=== PATIENT | male | born 1960 | race Two or more races ===

== ENCOUNTER 2023-10-11 17:15 | Inpatient (IN) | payer OTHER ==
[~2023-10-11] VITALS: Ht 154.9 cm; Wt 82.6 kg
[2023-10-11] VITALS (10 sets, daily range): BP systolic 58–110; BP diastolic 39–78; TEMP 98; O2SAT 92–98
[~2023-10-11 17:15] MED LIST: CEFT1VIA15 IV
[2023-10-11] MEDS: IV NS 0.9% 1,000 ML BAG IV ONE (17:24)
[2023-10-11] MEDS: VANCOMYCIN 1 GM in IV D5W 250 ML IV ONE (17:30)
[2023-10-11] MEDS: CEFEPIME 1 GM in IV D5W 50 ML IV ONE (17:30)
[2023-10-11] MEDS: NOREPINEPHRINE 8 MG in IV NS 0.9% 250 ML IV ONE (18:10)
[2023-10-11 18:26] LABS: CALCIUM, SERUM 8.2 mg/dL (8.5-10.1); CARBON DIOXIDE 31 mmol/L (21-32); CHLORIDE 101 mmol/L (98-107); CREATININE 1.7 mg/dL (0.6-1.3); GLUCOSE 135 mg/dL (74-106); POTASSIUM 3.5 mmol/L (3.5-5.1); SODIUM SERUM 142 mmol/L (136-145); UREA NITROGEN, BLOOD 76 mg/dL (7-18)
[2023-10-11 18:27] LABS: SERUM AMMONIA 25 umol/L (11-32)
[2023-10-11 18:33] LABS: ALANINE AMINOTRANSFERASE 176 U/L (12-78); ALBUMIN 1.5 g/dL (3.4-5.0); ALCOHOL, BLOOD < 3 mg/dL (0-10); ALKALINE PHOSPHATASE 125 U/L (46-116); ASPARTATE AMINOTRANSFERASE 409 U/L (15-37); BILIRUBIN,DIRECT 0.1 mg/dL (0.0-0.2); BILIRUBIN,TOTAL 0.3 mg/dL (0.2-1.0); SALICYLATE 2.7 mg/dL (2.8-20.0); TOTAL PROTEIN, SERUM 6.9 g/dL (6.4-8.2)
[2023-10-11 18:34] LABS: ACETAMINOPHEN <10 ug/ml (10-30)
[2023-10-11 18:48] LABS: BASOPHILS # (AUTO) 0.1 K/uL (0.0-0.2); BASOPHILS % (AUTO) 0.5 % (0.0-2.0); HEMATOCRIT 28 % (39-51); HEMOGLOBIN 8.9 g/dL (13.5-17.5); LYMPHOCYTES # (AUTO) 2.4 K/uL (0.8-4.8); LYMPHOCYTES % (AUTO) 12.5 % (20.0-44.0); MEAN CORPUSCULAR HEMOGLOBIN 25 PG (26.0-33.0); MEAN CORPUSCULAR HGB CONC 32 g/dl (31.0-36.0); MEAN CORPUSCULAR VOLUME 80 fL (80-96); MONOCYTES # (AUTO) 0.5 K/uL (0.1-1.30); MONOCYTES % (AUTO) 2.9 % (2.0-12.0); NEUTROPHILS # (AUTO) 16.2 K/uL (1.8-8.9); NEUTROPHILS % (AUTO) 84.1 % (43.0-81.0); PLATELET COUNT (AUTO) 172 K/uL (150-450); RED BLOOD CELL COUNT(AUTO) 3.55 MIL/uL (4.5-6.0); WHITE BLOOD COUNT (AUTO) 19.2 K/uL (4.3-11.0)
[2023-10-11 19:01] LABS: LACTIC ACID 4.6 mmol/L (0.4-2.0)
[2023-10-11 19:06] LABS: THYROID STIMULATING HORMONE 2.234 uIU/mL (0.358-3.74)
[2023-10-11 19:25] LABS: INR 1.22 (0.91-1.10); PARTIAL THROMBOPLASTIN TIME 38.1 SEC (24.3-34.3); PROTHROMBIN TIME 12.8 SECS (9.2-11.1)
[2023-10-11] MEDS ORDERED: MULT9LIQ GT (19:31)
[2023-10-11] MEDS ORDERED: HYDR-4075 GT (19:31)
[2023-10-11] MEDS ORDERED: ATOR40TA GT (19:31)
[2023-10-11] MEDS ORDERED: ACET-2030 GT (19:31)
[2023-10-11] MEDS ORDERED: ONDA-97 GT (19:31)
[2023-10-11] MEDS ORDERED: ZINC50TA65 GT (19:31)
[2023-10-11] MEDS ORDERED: MAGN400O6 GT (19:31)
[2023-10-11] MEDS ORDERED: IPRA0.2S49 IH (19:31)
[2023-10-11] MEDS ORDERED: CARB50DR EACHEYE (19:31)
[2023-10-11] MEDS ORDERED: DOCU100T2 GT (19:31)
[2023-10-11] MEDS ORDERED: POLY17PO4 GT (19:31)
[2023-10-11] MEDS ORDERED: GABA250S2 GT (19:31)
[2023-10-11] MEDS ORDERED: SENN-261 GT (19:31)
[2023-10-11] MEDS ORDERED: INSU100I40 SQ (19:31)
[2023-10-11] MEDS ORDERED: CHLO473M5 PO (19:31)
[2023-10-11] MEDS ORDERED: OXYCODONE GT (19:31)
[2023-10-11] MEDS ORDERED: NUT.237L31 PO (19:31)
[2023-10-11] MEDS ORDERED: METH500T6 GT (19:31)
[2023-10-11] MEDS ORDERED: ASCO500T21 GT (19:31)
[2023-10-11] MEDS ORDERED: APIX5TAB GT (19:31)
[2023-10-11] MEDS ORDERED: FINA5TAB11 GT (19:31)
[2023-10-11] MEDS ORDERED: ACET650S26 GT ×2 (19:31)
[2023-10-11] MEDS ORDERED: ALBU2.5V38 IH (19:31)
[2023-10-11] MEDS: IV NS 0.9% 1,000 ML IV ONE (20:13)
[2023-10-11] MEDS: CARBOXYMETHYLCELLULOSE SODIUM 0.4 ML DROPERETTE EACHEYE SCH (21:00)
[2023-10-11] MEDS ORDERED: MAGNESIUM HYDROXIDE 30 ML UDC PO PRN (21:00)
[2023-10-11] MEDS ORDERED: ACETAMINOPHEN 325 MG TABLET PO PRN (21:00)
[2023-10-11] MEDS ORDERED: ONDANSETRON HCL/PF 4 MG/2 ML VIAL IVP PRN (21:00)
[2023-10-11] MEDS ORDERED: DEXTROSE 50%-WATER 50 ML DISP.SYRIN IV PRN (21:00)
[2023-10-11] MEDS ORDERED: GLUCERNA 1.5 1,000 ML BOTTLE GT SCH (21:00)
[2023-10-11] MEDS ORDERED: Medication Not On Formulary EA (Docusate Sodium 100 MG) GT SCH (21:00)
[2023-10-11] MEDS ORDERED: MAGNESIUM HYDROXIDE 30 ML UDC GT PRN (21:00)
[2023-10-11] MEDS ORDERED: CEFEPIME 1 GM in IV D5W 50 ML IV SCH (21:00)
[2023-10-11] MEDS ORDERED: ACETAMINOPHEN 650 MG/20.3 ML UDC GT PRN (21:00)
[2023-10-11] MEDS ORDERED: MAG HYDROX/AL HYDROX/SIMETH 30 ML UDC GT PRN (21:00)
[2023-10-11] MEDS: IV NS 0.9% 1,000 ML IV PRN (21:45)
[2023-10-11] MEDS: PHENYLEPHRINE 50 MG in IV NS 0.9% 245 ML IV PRN (21:47)
[2023-10-11] MEDS: SENNOSIDES 8.6 MG TABLET GT SCH (22:00)
[2023-10-11] MEDS ORDERED: VANCOMYCIN 1 GM in IV NS 0.9% 250 ML IV ONE (22:00)
[2023-10-11] MEDS: ATORVASTATIN 40 MG TABLET GT SCH (23:25)
[2023-10-11] MEDS: APIXABAN 5 MG TABLET GT SCH (23:27)
[2023-10-12] VITALS (74 sets, daily range): BP systolic 75–149; BP diastolic 51–89; TEMP 98–104.3; O2SAT 97–100
[2023-10-12] MEDS ORDERED: ALBUTEROL FS 2.5 MG/3 ML VIAL.NEB IH SCH
[2023-10-12] MEDS ORDERED: IPRATROPIUM NEB FS 0.5 MG/2.5 ML AMPUL.NEB IH SCH
[2023-10-12] MEDS: BLOOD SUGAR DIAGNOSTIC 1 EACH STRIP IN SCH (00:08)
[2023-10-12] MEDS: NOREPINEPHRINE 8 MG in IV D5W 242 ML IV PRN (00:25)
[2023-10-12] MEDS: PHENYLEPHRINE 10 MG/ML VIAL ONE ×2 (00:28→02:37)
[2023-10-12] MEDS: ALBUTEROL FS 2.5 MG/3 ML VIAL.NEB IH SCH (01:18)
[2023-10-12] MEDS: IPRATROPIUM NEB FS 0.5 MG/2.5 ML AMPUL.NEB IH SCH (01:19)
[2023-10-12] MEDS ORDERED: ASPIRIN 81 MG TAB.CHEW PO SCH (02:30)
[2023-10-12] MEDS: ACETAMINOPHEN 650 MG/20.3 ML UDC GT PRN (04:44)
[2023-10-12 04:49] LABS: ABG BASE EXCESS 1.1 mmol/L; ABG OXYGEN SATURATION 98.8 % (92.0-98.5); ABG PCO2 32.3 mmHg (35.0-45.0); ABG PH 7.494 (7.350-7.450); ABG PO2 158.6 mmHg (75.0-100.0); ABG TOTAL HEMOGLOBIN 7.8 G/dL (13.5-18.0); AaDO2 522.1 mmHg; COHb 0.1 % (0.5-1.5); MetHb 0.6 % (0.0-1.5); O2Hb 98.1 % (94.0-97.0); PEEP,BG 0 cm H2O; SITE, ABG Left Radial; VENT MODE, BG AC24 550 FIO2 100 PEEP+0; VT, ABG 550 mL
[2023-10-12] MEDS: IV NS 0.9% 500 ML IV ONE (05:01)
[2023-10-12 05:12] LABS: BASOPHILS # (AUTO) 0.1 K/uL (0.0-0.2); BASOPHILS % (AUTO) 0.3 % (0.0-2.0); HEMATOCRIT 26 % (39-51); LYMPHOCYTES # (AUTO) 1.6 K/uL (0.8-4.8); LYMPHOCYTES % (AUTO) 8.7 % (20.0-44.0); MEAN CORPUSCULAR HEMOGLOBIN 25 PG (26.0-33.0); MEAN CORPUSCULAR HGB CONC 31 g/dl (31.0-36.0); MEAN CORPUSCULAR VOLUME 79 fL (80-96); MONOCYTES # (AUTO) 0.6 K/uL (0.1-1.30); MONOCYTES % (AUTO) 3.1 % (2.0-12.0); NEUTROPHILS # (AUTO) 15.7 K/uL (1.8-8.9); NEUTROPHILS % (AUTO) 87.9 % (43.0-81.0); PLATELET COUNT (AUTO) 123 K/uL (150-450); RED BLOOD CELL COUNT(AUTO) 3.23 MIL/uL (4.5-6.0); RED CELL DISTRIBUTION WIDTH 16.6 % (11.5-15.0); WHITE BLOOD COUNT (AUTO) 17.9 K/uL (4.3-11.0)
[2023-10-12 05:19] LABS: CALCIUM, SERUM 7.9 mg/dL (8.5-10.1); CREATININE 1.7 mg/dL (0.6-1.3); PHOSPHORUS 5.3 mg/dL (2.5-4.9); POTASSIUM 3.4 mmol/L (3.5-5.1)
[2023-10-12] MEDS: NOREPINEPHRINE 8MG/250ML RTU 250 ML IV ONE (06:26)
[2023-10-12] MEDS: POLYETHYLENE GLYCOL 3350 17 GM POWD.PACK GT SCH (09:09)
[2023-10-12] MEDS: CHLORHEXIDINE GLUCONATE 15 ML UDC MM SCH (09:09)
[2023-10-12] MEDS: DOCUSATE SODIUM LIQ 100 MG/10 ML UDC GT SCH (09:09)
[2023-10-12] MEDS: FINASTERIDE (5 MG) 5 MG TABLET GT SCH (09:10)
[2023-10-12] MEDS: HYDROCORTISONE SOD SUCCINATE 100 MG/2 ML VIAL IV SCH (09:10)
[2023-10-12] MEDS: ASCORBIC ACID 500 MG TABLET GT SCH (09:10)
[2023-10-12] MEDS: METHOCARBAMOL (500MG) 500 MG TABLET GT SCH (09:10)
[2023-10-12] MEDS: MULTIVIT W/MINERALS 1 TAB TABLET GT SCH (09:10)
[2023-10-12] MEDS: POTASSIUM CL. PREMIX PERIPHER. 50 ML IV SCH (10:17)
[2023-10-12] MEDS: GABAPENTIN 300 MG CAPSULE GT SCH (12:23)
[2023-10-12] MEDS ORDERED: GLUCERNA 1.5 1,000 ML BOTTLE NG PRN (17:00)
[2023-10-12] MEDS: CEFEPIME 1 GM in IV D5W 50 ML IV SCH (17:36)
[2023-10-12] MEDS: INSULIN REGULAR, HUMAN 100 UNIT/ML 3 ML VIAL SQ PRN (18:02)
[2023-10-12] MEDS: VANCOMYCIN HCL 1.25 GM in IV D5W 250 ML IV SCH (18:26)
[2023-10-13] VITALS (97 sets, daily range): BP systolic 88–125; BP diastolic 62–90; TEMP 97.1–100.2; O2SAT 100
[2023-10-13 05:06] LABS: CALCIUM, SERUM 8.1 mg/dL (8.5-10.1); CREATININE 0.7 mg/dL (0.6-1.3); POTASSIUM 3.1 mmol/L (3.5-5.1)
[2023-10-13] MEDS: POTASSIUM CHLORIDE 20 MEQ POWDER PACKET GT SCH (08:30)
[2023-10-13] MEDS: CEFEPIME 2 GM in IV D5W 100 ML IV SCH (08:39)
[2023-10-13] MEDS: VANCOMYCIN 750 MG in IV D5W 250 ML IV SCH (08:40)
[2023-10-13] MEDS: THERAHONEY GEL 1.5 OZ TUBE TP SCH ×2 (09:00→16:26)
[2023-10-13] MEDS: POLYVINYL ALCOHOL 15 ML BOTTLE EACHEYE SCH (16:27)
[2023-10-13] MEDS: PROSOURCE / PROSTAT (PYXIS) 30 ML UDC GT SCH (16:34)
[2023-10-13] MEDS: ARGININE/GLUTAMINE/CALCIUM BMB 1 EACH POWD.PACK GT SCH (16:34)
[2023-10-14] VITALS (92 sets, daily range): BP systolic 79–135; BP diastolic 55–93; TEMP 97–98.8; O2SAT 95–100
[2023-10-14] MEDS: GLUCERNA 1.2 1,000 ML BOTTLE NG PRN (00:21)
[2023-10-14 04:54] LABS: CALCIUM, SERUM 8.4 mg/dL (8.5-10.1); CREATININE 0.6 mg/dL (0.6-1.3); POTASSIUM 3.1 mmol/L (3.5-5.1)
[2023-10-14 07:00] LABS: BASOPHILS % (AUTO) 0.2 % (0.0-2.0); LYMPHOCYTES # (AUTO) 0.7 K/uL (0.8-4.8); LYMPHOCYTES % (AUTO) 6.1 % (20.0-44.0); MEAN CORPUSCULAR HEMOGLOBIN 25 PG (26.0-33.0); MEAN CORPUSCULAR HGB CONC 31 g/dl (31.0-36.0); MEAN CORPUSCULAR VOLUME 80 fL (80-96); MONOCYTES # (AUTO) 0.3 K/uL (0.1-1.30); MONOCYTES % (AUTO) 2.9 % (2.0-12.0); NEUTROPHILS # (AUTO) 10.9 K/uL (1.8-8.9); NEUTROPHILS % (AUTO) 90.8 % (43.0-81.0); PLATELET COUNT (AUTO) 61 K/uL (150-450); RED BLOOD CELL COUNT(AUTO) 2.37 MIL/uL (4.5-6.0); RED CELL DISTRIBUTION WIDTH 16.3 % (11.5-15.0)
[2023-10-14 07:07] LABS: HEMATOCRIT 19 % (39-51); HEMOGLOBIN 5.9 g/dL (13.5-17.5)
[2023-10-14] MEDS: POTASSIUM CHLORIDE 20 MEQ POWDER PACKET GT ONE (08:49)
[2023-10-14 12:09] LABS: BAND % (MANUAL) 2 % (0.0-5.0); EOSINOPHILS % (MANUAL) 0 % (0-4); LYMPHOCYTES % (MANUAL) 9 % (16-48); MONOCYTES % (MANUAL) 4 % (0-11.0); NEUTROPHILS % (MANUAL) 85 (42-76)
[2023-10-14 12:10] LABS: ANISOCYTOSIS 1+; BASOPHILS % (MANUAL) 0 % (0.0-2.0); HYPOCHROMASIA 1+; OVALOCYTES 1+; PLATELET ESTIMATE DECREASED
[2023-10-14] MEDS: METOCLOPRAMIDE HCL 10 MG/2 ML VIAL IV SCH (21:49)
[2023-10-15] VITALS (31 sets, daily range): BP systolic 105–132; BP diastolic 51–97; TEMP 97.7–98.1; O2SAT 94–100
[2023-10-15 03:52] LABS: BASOPHILS % (AUTO) 0.2 % (0.0-2.0); HEMATOCRIT 23 % (39-51); HEMOGLOBIN 7.7 g/dL (13.5-17.5); LYMPHOCYTES # (AUTO) 0.6 K/uL (0.8-4.8); LYMPHOCYTES % (AUTO) 5.5 % (20.0-44.0); MEAN CORPUSCULAR HEMOGLOBIN 26 PG (26.0-33.0); MEAN CORPUSCULAR HGB CONC 33 g/dl (31.0-36.0); MEAN CORPUSCULAR VOLUME 80 fL (80-96); MONOCYTES # (AUTO) 0.2 K/uL (0.1-1.30); MONOCYTES % (AUTO) 2.4 % (2.0-12.0); NEUTROPHILS # (AUTO) 9.7 K/uL (1.8-8.9); NEUTROPHILS % (AUTO) 91.9 % (43.0-81.0); PLATELET COUNT (AUTO) 52 K/uL (150-450); RED BLOOD CELL COUNT(AUTO) 2.92 MIL/uL (4.5-6.0); RED CELL DISTRIBUTION WIDTH 16.3 % (11.5-15.0); WHITE BLOOD COUNT (AUTO) 10.5 K/uL (4.3-11.0)
[2023-10-15 04:27] LABS: ALBUMIN 1.5 g/dL (3.4-5.0); BILIRUBIN,TOTAL 0.8 mg/dL (0.2-1.0); CALCIUM, SERUM 8.7 mg/dL (8.5-10.1); CREATININE 0.5 mg/dL (0.6-1.3); MAGNESIUM 2.4 mg/dL (1.8-2.4); PHOSPHORUS 3.8 mg/dL (2.5-4.9); POTASSIUM 3.4 mmol/L (3.5-5.1)
[2023-10-15 05:47] LABS: ANISOCYTOSIS 1+; BASOPHILS % (MANUAL) 0 % (0.0-2.0); EOSINOPHILS % (MANUAL) 0 % (0-4); HYPOCHROMASIA 1+; LYMPHOCYTES % (MANUAL) 12 % (16-48); MONOCYTES % (MANUAL) 5 % (0-11.0); NEUTROPHILS % (MANUAL) 83 (42-76); PLATELET ESTIMATE DECREASED
[2023-10-15] MEDS: POTASSIUM CHLORIDE 20 MEQ POWDER PACKET NG SCH (08:28)
[2023-10-15] MEDS: Z GUARD REMEDY 4 OZ OINT TP PRN (09:31)
[2023-10-15] MEDS: MEROPENEM 1 G in IV NS 0.9% 100 ML IV SCH (09:39)
[2023-10-15] MEDS: HYDROCORTISONE SOD SUCCINATE 100 MG/2 ML VIAL IV SCH (16:10)
[2023-10-16] VITALS (86 sets, daily range): BP systolic 82–134; BP diastolic 51–79; TEMP 97.6–102.7; O2SAT 89–99
[2023-10-16 03:37] LABS: CALCIUM, SERUM 8.1 mg/dL (8.5-10.1); CREATININE 0.4 mg/dL (0.6-1.3)
[2023-10-16 08:14] LABS: BASOPHILS % (AUTO) 0.1 % (0.0-2.0); HEMATOCRIT 23 % (39-51); HEMOGLOBIN 7.3 g/dL (13.5-17.5); LYMPHOCYTES # (AUTO) 0.6 K/uL (0.8-4.8); LYMPHOCYTES % (AUTO) 5.2 % (20.0-44.0); MEAN CORPUSCULAR HEMOGLOBIN 26 PG (26.0-33.0); MEAN CORPUSCULAR HGB CONC 32 g/dl (31.0-36.0); MEAN CORPUSCULAR VOLUME 81 fL (80-96); MONOCYTES # (AUTO) 0.2 K/uL (0.1-1.30); MONOCYTES % (AUTO) 1.8 % (2.0-12.0); NEUTROPHILS # (AUTO) 11.6 K/uL (1.8-8.9); NEUTROPHILS % (AUTO) 92.9 % (43.0-81.0); PLATELET COUNT (AUTO) 65 K/uL (150-450); RED BLOOD CELL COUNT(AUTO) 2.86 MIL/uL (4.5-6.0); RED CELL DISTRIBUTION WIDTH 16.7 % (11.5-15.0); WHITE BLOOD COUNT (AUTO) 12.5 K/uL (4.3-11.0)
[2023-10-16] MEDS: HYDROCORTISONE SOD SUCCINATE 100 MG/2 ML VIAL IV SCH (08:37)
[2023-10-16] MEDS: DOCUSATE SODIUM LIQ 100 MG/10 ML UDC GT SCH (08:38)
[2023-10-16] MEDS: ARGININE/GLUTAMINE/CALCIUM BMB 1 EACH POWD.PACK GT SCH (08:39)
[2023-10-16] MEDS: PROSOURCE / PROSTAT (PYXIS) 30 ML UDC GT SCH (08:39)
[2023-10-16] MEDS: MEROPENEM 1 G in IV NS 0.9% 100 ML IV SCH (08:41)
[2023-10-16] MEDS: CHLORHEXIDINE GLUCONATE 15 ML UDC MM SCH (09:28)
[2023-10-16 10:10] LABS: ANISOCYTOSIS 1+; BAND % (MANUAL) 1 % (0.0-5.0); BASOPHILS % (MANUAL) 0 % (0.0-2.0); EOSINOPHILS % (MANUAL) 0 % (0-4); LYMPHOCYTES % (MANUAL) 4 % (16-48); MONOCYTES % (MANUAL) 2 % (0-11.0); NEUTROPHILS % (MANUAL) 93 (42-76); OVALOCYTES 1+; PLATELET ESTIMATE DECREASED
[2023-10-16] MEDS: POTASSIUM CHLORIDE 20 MEQ POWDER PACKET NG SCH (10:35)
[2023-10-16] MEDS: METHOCARBAMOL (500MG) 500 MG TABLET GT SCH (12:29)
[2023-10-16] MEDS: METRONIDAZOLE 500 MG TABLET PO SCH (21:31)
[2023-10-17] VITALS (60 sets, daily range): BP systolic 83–140; BP diastolic 58–81; TEMP 97.2–98.3; O2SAT 97–100
[2023-10-17 04:17] LABS: BASOPHILS % (AUTO) 0.5 % (0.0-2.0); HEMATOCRIT 21 % (39-51); LYMPHOCYTES # (AUTO) 0.4 K/uL (0.8-4.8); LYMPHOCYTES % (AUTO) 7.5 % (20.0-44.0); MEAN CORPUSCULAR HEMOGLOBIN 26 PG (26.0-33.0); MEAN CORPUSCULAR HGB CONC 33 g/dl (31.0-36.0); MEAN CORPUSCULAR VOLUME 80 fL (80-96); MONOCYTES # (AUTO) 0.2 K/uL (0.1-1.30); MONOCYTES % (AUTO) 4.3 % (2.0-12.0); NEUTROPHILS # (AUTO) 5.1 K/uL (1.8-8.9); NEUTROPHILS % (AUTO) 87.7 % (43.0-81.0); PLATELET COUNT (AUTO) 65 K/uL (150-450); RED BLOOD CELL COUNT(AUTO) 2.65 MIL/uL (4.5-6.0); RED CELL DISTRIBUTION WIDTH 16.8 % (11.5-15.0); WHITE BLOOD COUNT (AUTO) 5.9 K/uL (4.3-11.0)
[2023-10-17 04:33] LABS: CALCIUM, SERUM 8.5 mg/dL (8.5-10.1); CREATININE 0.3 mg/dL (0.6-1.3); MAGNESIUM 1.9 mg/dL (1.8-2.4); PHOSPHORUS 2.9 mg/dL (2.5-4.9); POTASSIUM 3.3 mmol/L (3.5-5.1)
[2023-10-17 05:20] LABS: BAND % (MANUAL) 3 % (0.0-5.0); LYMPHOCYTES % (MANUAL) 9 % (16-48)
[2023-10-17 05:21] LABS: MONOCYTES % (MANUAL) 4 % (0-11.0); NEUTROPHILS % (MANUAL) 84 (42-76)
[2023-10-17 05:22] LABS: HYPOCHROMASIA 1+; PLATELET ESTIMATE DECREASED
[2023-10-17] MEDS ORDERED: NOREPINEPHRINE 8 MG in IV D5W 242 ML IV PRN (07:30)
[2023-10-17] MEDS: POTASSIUM CHLORIDE 20 MEQ POWDER PACKET GT SCH (09:40)
[2023-10-17] MEDS ORDERED: DOSING PER PHARMACY-TOBRA INHALATION 1 EA XX PRN (14:00)
[2023-10-17] MEDS: CEFEPIME 2 GM in IV D5W 100 ML IV SCH (15:04)
[2023-10-17] MEDS: TOBRAMYCIN 80 MG/2 ML VIAL INH SCH (20:03)
[2023-10-18] VITALS (30 sets, daily range): BP systolic 92–149; BP diastolic 55–84; TEMP 97.5–98.4; O2SAT 91–100
[2023-10-18 05:23] LABS: CALCIUM, SERUM 8.9 mg/dL (8.5-10.1); CREATININE 0.4 mg/dL (0.6-1.3); MAGNESIUM 1.9 mg/dL (1.8-2.4); PHOSPHORUS 2.6 mg/dL (2.5-4.9); POTASSIUM 3.5 mmol/L (3.5-5.1)
[2023-10-18 05:25] LABS: BASOPHILS % (AUTO) 0.1 % (0.0-2.0); EOSINOPHILS % (AUTO) 0.1 % (0.0-6.0); LYMPHOCYTES # (AUTO) 0.3 K/uL (0.8-4.8); LYMPHOCYTES % (AUTO) 10.4 % (20.0-44.0); MEAN CORPUSCULAR HEMOGLOBIN 26 PG (26.0-33.0); MEAN CORPUSCULAR HGB CONC 33 g/dl (31.0-36.0); MEAN CORPUSCULAR VOLUME 80 fL (80-96); MONOCYTES # (AUTO) 0.1 K/uL (0.1-1.30); MONOCYTES % (AUTO) 4.5 % (2.0-12.0); NEUTROPHILS # (AUTO) 2.8 K/uL (1.8-8.9); NEUTROPHILS % (AUTO) 84.9 % (43.0-81.0); PLATELET COUNT (AUTO) 69 K/uL (150-450); RED BLOOD CELL COUNT(AUTO) 2.57 MIL/uL (4.5-6.0); RED CELL DISTRIBUTION WIDTH 16.7 % (11.5-15.0); WHITE BLOOD COUNT (AUTO) 3.2 K/uL (4.3-11.0)
[2023-10-18 05:26] LABS: HEMATOCRIT 20 % (39-51)
[2023-10-18 05:27] LABS: HEMOGLOBIN 6.7 g/dL (13.5-17.5)
[2023-10-18 11:34] LABS: BAND % (MANUAL) 1 % (0.0-5.0); BASOPHILS % (MANUAL) 0 % (0.0-2.0); EOSINOPHILS % (MANUAL) 0 % (0-4); HYPOCHROMASIA 1+; LYMPHOCYTES % (MANUAL) 8 % (16-48); MONOCYTES % (MANUAL) 5 % (0-11.0); NEUTROPHILS % (MANUAL) 86 (42-76); PLATELET ESTIMATE DECREASED
[2023-10-18 11:35] LABS: ANISOCYTOSIS 1+
[2023-10-18] MEDS: METRONIDAZOLE 500 MG TABLET GT SCH (12:56)
[2023-10-19] VITALS (18 sets, daily range): BP systolic 105–152; BP diastolic 50–78; TEMP 97.5–98.7; O2SAT 96–100
[2023-10-19 04:43] LABS: BASOPHILS % (AUTO) 0.1 % (0.0-2.0); HEMATOCRIT 23 % (39-51); HEMOGLOBIN 7.6 g/dL (13.5-17.5); LYMPHOCYTES # (AUTO) 0.7 K/uL (0.8-4.8); LYMPHOCYTES % (AUTO) 16.2 % (20.0-44.0); MEAN CORPUSCULAR HEMOGLOBIN 27 PG (26.0-33.0); MEAN CORPUSCULAR HGB CONC 33 g/dl (31.0-36.0); MEAN CORPUSCULAR VOLUME 81 fL (80-96); MONOCYTES # (AUTO) 0.2 K/uL (0.1-1.30); MONOCYTES % (AUTO) 3.8 % (2.0-12.0); NEUTROPHILS # (AUTO) 3.5 K/uL (1.8-8.9); NEUTROPHILS % (AUTO) 78.9 % (43.0-81.0); PLATELET COUNT (AUTO) 72 K/uL (150-450); RED BLOOD CELL COUNT(AUTO) 2.86 MIL/uL (4.5-6.0); RED CELL DISTRIBUTION WIDTH 16.9 % (11.5-15.0); WHITE BLOOD COUNT (AUTO) 4.4 K/uL (4.3-11.0)
[2023-10-19 05:10] LABS: CALCIUM, SERUM 8.8 mg/dL (8.5-10.1); CREATININE 0.3 mg/dL (0.6-1.3); MAGNESIUM 1.8 mg/dL (1.8-2.4); PHOSPHORUS 2.7 mg/dL (2.5-4.9)
[2023-10-19] MEDS: POTASSIUM CHLORIDE 20 MEQ TAB.PRT.SR PO ONE (08:42)
[2023-10-19] MEDS ORDERED: POTASSIUM CHLORIDE 20 MEQ POWDER PACKET GT SCH (10:00)
[2023-10-19 10:30] LABS: ANISOCYTOSIS 1+; BASOPHILS % (MANUAL) 0 % (0.0-2.0); EOSINOPHILS % (MANUAL) 1 % (0-4); LYMPHOCYTES % (MANUAL) 13 % (16-48); MONOCYTES % (MANUAL) 5 % (0-11.0); NEUTROPHILS % (MANUAL) 81 (42-76); PLATELET ESTIMATE DECREASED
[2023-10-20] VITALS: BP 149/83; TEMP 97.7; O2SAT 98
[2023-10-20 04:00] VITALS: BP 144/75; TEMP 98.4; O2SAT 96
[2023-10-20 05:58] LABS: BASOPHILS % (AUTO) 0.1 % (0.0-2.0); EOSINOPHILS % (AUTO) 0.7 % (0.0-6.0); HEMATOCRIT 23 % (39-51); HEMOGLOBIN 7.5 g/dL (13.5-17.5); LYMPHOCYTES # (AUTO) 0.6 K/uL (0.8-4.8); LYMPHOCYTES % (AUTO) 13.1 % (20.0-44.0); MEAN CORPUSCULAR HEMOGLOBIN 26 PG (26.0-33.0); MEAN CORPUSCULAR HGB CONC 33 g/dl (31.0-36.0); MEAN CORPUSCULAR VOLUME 80 fL (80-96); MONOCYTES # (AUTO) 0.2 K/uL (0.1-1.30); NEUTROPHILS # (AUTO) 3.7 K/uL (1.8-8.9); NEUTROPHILS % (AUTO) 81.1 % (43.0-81.0); PLATELET COUNT (AUTO) 82 K/uL (150-450); RED BLOOD CELL COUNT(AUTO) 2.85 MIL/uL (4.5-6.0); RED CELL DISTRIBUTION WIDTH 17.4 % (11.5-15.0); WHITE BLOOD COUNT (AUTO) 4.6 K/uL (4.3-11.0)
[2023-10-20 06:08] LABS: CALCIUM, SERUM 8.6 mg/dL (8.5-10.1); CREATININE 0.3 mg/dL (0.6-1.3); MAGNESIUM 1.7 mg/dL (1.8-2.4); PHOSPHORUS 3.1 mg/dL (2.5-4.9); POTASSIUM 2.9 mmol/L (3.5-5.1)
[2023-10-20 06:40] LABS: ANISOCYTOSIS 1+; BASOPHILS % (MANUAL) 0 % (0.0-2.0); EOSINOPHILS % (MANUAL) 0 % (0-4); HYPOCHROMASIA 1+; LYMPHOCYTES % (MANUAL) 11 % (16-48); MONOCYTES % (MANUAL) 6 % (0-11.0); NEUTROPHILS % (MANUAL) 83 (42-76); OVALOCYTES 1+; PLATELET ESTIMATE DECREASED; TARGET CELLS 1+
[2023-10-20 08:00] VITALS: BP 138/72; TEMP 97.4; O2SAT 98
[2023-10-20] MEDS: Magnesium 1GM/D5W 100ML PREMIX 100 ML IV SCH (08:06)
[2023-10-20] MEDS: POTASSIUM CHLORIDE 20 MEQ POWDER PACKET NG SCH (08:06)
[2023-10-20 12:00] VITALS: BP 143/79; TEMP 97.3; O2SAT 98
[2023-10-20 16:00] VITALS: BP 139/74; TEMP 97.3; O2SAT 98
[2023-10-20 20:00] VITALS: BP 127/80; TEMP 98.8; O2SAT 100
[2023-10-21] VITALS: BP 124/72; TEMP 97.7; O2SAT 100
[2023-10-21 04:00] VITALS: BP 98/41; TEMP 97.3; O2SAT 100
[2023-10-21 07:03] LABS: BASOPHILS % (AUTO) 0.2 % (0.0-2.0); EOSINOPHILS % (AUTO) 0.4 % (0.0-6.0); HEMATOCRIT 23 % (39-51); HEMOGLOBIN 7.4 g/dL (13.5-17.5); LYMPHOCYTES # (AUTO) 0.6 K/uL (0.8-4.8); LYMPHOCYTES % (AUTO) 13.8 % (20.0-44.0); MEAN CORPUSCULAR HEMOGLOBIN 26 PG (26.0-33.0); MEAN CORPUSCULAR HGB CONC 33 g/dl (31.0-36.0); MEAN CORPUSCULAR VOLUME 80 fL (80-96); MONOCYTES # (AUTO) 0.3 K/uL (0.1-1.30); MONOCYTES % (AUTO) 5.9 % (2.0-12.0); NEUTROPHILS # (AUTO) 3.6 K/uL (1.8-8.9); NEUTROPHILS % (AUTO) 79.7 % (43.0-81.0); PLATELET COUNT (AUTO) 89 K/uL (150-450); RED BLOOD CELL COUNT(AUTO) 2.81 MIL/uL (4.5-6.0); RED CELL DISTRIBUTION WIDTH 17.5 % (11.5-15.0); WHITE BLOOD COUNT (AUTO) 4.5 K/uL (4.3-11.0)
[2023-10-21 07:19] LABS: CALCIUM, SERUM 8.2 mg/dL (8.5-10.1); CREATININE 0.3 mg/dL (0.6-1.3); MAGNESIUM 1.8 mg/dL (1.8-2.4); PHOSPHORUS 2.7 mg/dL (2.5-4.9); POTASSIUM 3.3 mmol/L (3.5-5.1)
[2023-10-21 08:00] VITALS: BP 116/68; TEMP 96.7; O2SAT 100
[2023-10-21] MEDS ORDERED: POTASSIUM CHLORIDE 20 MEQ TAB.PRT.SR PO ONE (09:00)
[2023-10-21] MEDS: POTASSIUM CHLORIDE 20 MEQ POWDER PACKET GT SCH (09:49)
[2023-10-21 11:33] LABS: ANISOCYTOSIS 1+; BASOPHILS % (MANUAL) 0 % (0.0-2.0); EOSINOPHILS % (MANUAL) 0 % (0-4); HYPOCHROMASIA 1+; LYMPHOCYTES % (MANUAL) 11 % (16-48); MONOCYTES % (MANUAL) 8 % (0-11.0); NEUTROPHILS % (MANUAL) 81 (42-76); PLATELET ESTIMATE DECREASED; TARGET CELLS 1+
[2023-10-21 12:00] VITALS: BP 127/80; TEMP 96.5; O2SAT 100
[2023-10-21 16:00] VITALS: BP 140/84; TEMP 96.5; O2SAT 100
[2023-10-21 17:44] LABS: OCCULT BLOOD STOOL NEGATIVE (NEGATIVE)
[2023-10-21] MEDS ORDERED: IV NS 0.9% 250 ML IV PRN (18:30)
[2023-10-21 20:00] VITALS: BP 131/75; TEMP 97.3; O2SAT 99
[2023-10-22] VITALS (8 sets, daily range): BP systolic 95–126; BP diastolic 62–83; TEMP 97.1–98.8; O2SAT 96–99
[2023-10-22 07:09] LABS: BASOPHILS % (AUTO) 0.2 % (0.0-2.0); EOSINOPHILS % (AUTO) 0.3 % (0.0-6.0); HEMATOCRIT 23 % (39-51); HEMOGLOBIN 7.5 g/dL (13.5-17.5); LYMPHOCYTES # (AUTO) 0.6 K/uL (0.8-4.8); LYMPHOCYTES % (AUTO) 13.8 % (20.0-44.0); MEAN CORPUSCULAR HEMOGLOBIN 27 PG (26.0-33.0); MEAN CORPUSCULAR HGB CONC 33 g/dl (31.0-36.0); MEAN CORPUSCULAR VOLUME 80 fL (80-96); MONOCYTES # (AUTO) 0.3 K/uL (0.1-1.30); MONOCYTES % (AUTO) 5.9 % (2.0-12.0); NEUTROPHILS # (AUTO) 3.7 K/uL (1.8-8.9); NEUTROPHILS % (AUTO) 79.8 % (43.0-81.0); PLATELET COUNT (AUTO) 90 K/uL (150-450); RED BLOOD CELL COUNT(AUTO) 2.83 MIL/uL (4.5-6.0); RED CELL DISTRIBUTION WIDTH 17.5 % (11.5-15.0); WHITE BLOOD COUNT (AUTO) 4.6 K/uL (4.3-11.0)
[2023-10-22 07:47] LABS: CREATININE 0.3 mg/dL (0.6-1.3); MAGNESIUM 1.8 mg/dL (1.8-2.4); PHOSPHORUS 3.3 mg/dL (2.5-4.9); POTASSIUM 3.5 mmol/L (3.5-5.1)
[2023-10-22] MEDS: POTASSIUM CHLORIDE 20 MEQ POWDER PACKET NG SCH (09:26)
[2023-10-22 09:45] LABS: BAND % (MANUAL) 2 % (0.0-5.0); BASOPHILS % (MANUAL) 0 % (0.0-2.0); EOSINOPHILS % (MANUAL) 0 % (0-4); LYMPHOCYTES % (MANUAL) 10 % (16-48); MONOCYTES % (MANUAL) 6 % (0-11.0); NEUTROPHILS % (MANUAL) 82 (42-76)
[2023-10-22 09:46] LABS: ANISOCYTOSIS 1+; OVALOCYTES 1+; PLATELET ESTIMATE DECREASED; STOMATOCYTES 1+
[2023-10-23] VITALS: BP 90/58; TEMP 98.5; O2SAT 99
[2023-10-23 04:00] VITALS: BP 97/64; TEMP 99.7; O2SAT 99
[2023-10-23 07:57] LABS: CALCIUM, SERUM 7.9 mg/dL (8.5-10.1); CREATININE 0.3 mg/dL (0.6-1.3)
[2023-10-23 08:00] VITALS: BP 106/67; TEMP 98.1; O2SAT 100
== END 2023-10-23 11:13 | DRG 720 ==
LOC: ER 17:31 → ICU 21:10 → TELE-TD 10-19 14:55 → TELE1 10-20 10:24
PROVIDERS: ADMIT Nurse Practitioner Acute Care; ATTEND Nurse Practitioner Family
PROC: 5A1955Z Respiratory Ventilation, Greater than 96 Consecutive Hours (ICD-10-PCS; principal; 2023-10-11)
PROC: 02HV33Z Insertion of Infusion Device into Superior Vena Cava, Percutaneous Approach (ICD-10-PCS; 2023-10-12)
PROC: B548ZZA Ultrasonography of Superior Vena Cava, Guidance (ICD-10-PCS; 2023-10-12)
PROC: 30233N1 Transfusion of Nonautologous Red Blood Cells into Peripheral Vein, Percutaneous Approach (ICD-10-PCS; 2023-10-14)
PROC: 0JB70ZZ Excision of Back Subcutaneous Tissue and Fascia, Open Approach (ICD-10-PCS; 2023-10-22)
DX: A41.9 Sepsis, unspecified organism (principal); N17.0 Acute kidney failure with tubular necrosis; J96.21 Acute and chronic respiratory failure with hypoxia; G82.50 Quadriplegia, unspecified; J95.851 Ventilator associated pneumonia; R65.21 Severe sepsis with septic shock; R57.1 Hypovolemic shock; L89.153 Pressure ulcer of sacral region, stage 3; E43 Unspecified severe protein-calorie malnutrition; D69.6 Thrombocytopenia, unspecified; J15.9 Unspecified bacterial pneumonia; G93.41 Metabolic encephalopathy; Z20.822 Contact with and (suspected) exposure to COVID-19; V09.20XS Pedestrian injured in traffic accident involving unspecified motor vehicles, sequela; Z93.0 Tracheostomy status; Z93.1 Gastrostomy status; Z99.11 Dependence on respirator [ventilator] status; R13.10 Dysphagia, unspecified; Z86.718 Personal history of other venous thrombosis and embolism; Z79.4 Long term (current) use of insulin; Z79.51 Long term (current) use of inhaled steroids; Z79.01 Long term (current) use of anticoagulants; Z79.899 Other long term (current) drug therapy; Z79.52 Long term (current) use of systemic steroids; Z74.01 Bed confinement status; Z74.09 Other reduced mobility; G93.1 Anoxic brain damage, not elsewhere classified; G40.909 Epilepsy, unspecified, not intractable, without status epilepticus; N18.9 Chronic kidney disease, unspecified; I12.9 Hypertensive chronic kidney disease with stage 1 through stage 4 chronic kidney disease, or unspecified chronic kidney disease; E11.22 Type 2 diabetes mellitus with diabetic chronic kidney disease; E78.5 Hyperlipidemia, unspecified; Y95 Nosocomial condition; D63.8 Anemia in other chronic diseases classified elsewhere; E87.20 Acidosis, unspecified; E86.9 Volume depletion, unspecified; E88.09 Other disorders of plasma-protein metabolism, not elsewhere classified; R74.01 Elevation of levels of liver transaminase levels; D62 Acute posthemorrhagic anemia; E87.6 Hypokalemia; Y84.8 Other medical procedures as the cause of abnormal reaction of the patient, or of later complication, without mention of misadventure at the time of the procedure; Y92.129 Unspecified place in nursing home as the place of occurrence of the external cause; J98.11 Atelectasis; J90 Pleural effusion, not elsewhere classified; L89.619 Pressure ulcer of right heel, unspecified stage; L89.629 Pressure ulcer of left heel, unspecified stage; Z87.820 Personal history of traumatic brain injury
CPT/HCPCS: 31720; 36415; 36569; 36600; 70450-TC; 71045-TC; 74018; 80048-TC; 80053-TC; 80076-TC; 80202-TC; 82140-TC; 82272-TC; 82533; 82803-TC; 82962-TC; 83605-TC; 83735-TC; 84100-TC; 84443-TC; 84484-TC; 85025-TC; 85027-TC; 85730-TC; 86850-TC; 87040-TC; 87086-TC; 93307-TC; 93970-TC; 94003-TC; 94760-TC; 94761-TC; 94762-TC; 94799-TC; 99082-TC; A4223; A7526; G0378; G0480; J0692; J1720; J1815; J2185; J2765; J3260; J3370; J3371; J3475; J3480; J7030; J7040; J7050; J7060; P9016

== ENCOUNTER 2023-11-22 19:19 | Inpatient (IN) | payer OTHER ==
[~2023-11-22] VITALS: Ht 175.3 cm; Wt 69.9 kg
[2023-11-22] VITALS (13 sets, daily range): BP systolic 83–108; BP diastolic 57–69; TEMP 97.5–98.3; O2SAT 97–100
[~2023-11-22 19:19] MED LIST changes: +ACET-2030 GT; +ACET650S26 GT; +ALBU2.5V38 IH; +APIX5TAB GT; +ASCO500T21 GT; +ATOR40TA GT; +CARB50DR EACHEYE; +CHLO473M5 PO; +DOCU100T2 GT; +FINA5TAB11 GT; +GABA250S2 GT; +HYDR-4075 GT; +INSU100I40 SQ; +IPRA0.2S49 IH; +MAGN400O6 GT; +METH500T6 GT; +MULT9LIQ GT; +NUT.237L31 PO; +ONDA-97 GT; +OXYCODONE GT; +POLY17PO4 GT; +SENN-261 GT; +ZINC50TA65 GT
[2023-11-22] MEDS ORDERED: CEFEPIME 1 GM VIAL ONE (19:37)
[2023-11-22] MEDS ORDERED: VANCOMYCIN 1 GM /D5W 250 ML PB IV ONE (19:37)
[2023-11-22] MEDS: IV LR 1000 ML 1,000 ML BAG IV ONE (19:40)
[2023-11-22] MEDS: CEFEPIME 1 GM in IV D5W 50 ML IV ONE (19:45)
[2023-11-22] MEDS: VANCOMYCIN 1 GM in IV D5W 250 ML IV ONE (19:45)
[2023-11-22 19:57] LABS: ALANINE AMINOTRANSFERASE 67 U/L (12-78); ALKALINE PHOSPHATASE 141 U/L (46-116); ASPARTATE AMINOTRANSFERASE 160 U/L (15-37); BILIRUBIN,DIRECT 0.3 mg/dL (0.0-0.2); BILIRUBIN,TOTAL 0.4 mg/dL (0.2-1.0); CALCIUM, SERUM 8.4 mg/dL (8.5-10.1); CARBON DIOXIDE 32 mmol/L (21-32); CHLORIDE 88 mmol/L (98-107); CREATININE 3.6 mg/dL (0.6-1.3); GLUCOSE 125 mg/dL (74-106); POTASSIUM 4.9 mmol/L (3.5-5.1); SODIUM SERUM 131 mmol/L (136-145); TOTAL PROTEIN, SERUM 8.2 g/dL (6.4-8.2)
[2023-11-22 20:01] LABS: ALBUMIN 1.4 g/dL (3.4-5.0); INR 1.22 (0.91-1.10); PARTIAL THROMBOPLASTIN TIME 42.2 SEC (24.3-34.3); PROTHROMBIN TIME 12.8 SECS (9.2-11.1); UREA NITROGEN, BLOOD 89 mg/dL (7-18)
[2023-11-22 20:02] LABS: LACTIC ACID 2.2 mmol/L (0.4-2.0)
[2023-11-22] MEDS ORDERED: ASCO500L2 GT (20:04)
[2023-11-22] MEDS ORDERED: ACET125T3 GT (20:04)
[2023-11-22] MEDS ORDERED: AMIN30LI66 GT (20:04)
[2023-11-22] MEDS ORDERED: DOCU100T2 GT (20:04)
[2023-11-22] MEDS ORDERED: FERR325T23 GT (20:04)
[2023-11-22] MEDS ORDERED: ALBU2.5V38 IH (20:04)
[2023-11-22] MEDS ORDERED: DOCU100C36 GT (20:05)
[2023-11-22 20:12] LABS: BASOPHILS % (AUTO) 0.2 % (0.0-2.0); EOSINOPHILS % (AUTO) 0.1 % (0.0-6.0); LYMPHOCYTES # (AUTO) 1.3 K/uL (0.8-4.8); MEAN CORPUSCULAR HEMOGLOBIN 25 PG (26.0-33.0); MEAN CORPUSCULAR HGB CONC 31 g/dl (31.0-36.0); MEAN CORPUSCULAR VOLUME 80 fL (80-96); MONOCYTES # (AUTO) 0.8 K/uL (0.1-1.30); MONOCYTES % (AUTO) 3.5 % (2.0-12.0); NEUTROPHILS # (AUTO) 19.6 K/uL (1.8-8.9); NEUTROPHILS % (AUTO) 90.2 % (43.0-81.0); PLATELET COUNT (AUTO) 337 K/uL (150-450); RED BLOOD CELL COUNT(AUTO) 2.33 MIL/uL (4.5-6.0); RED CELL DISTRIBUTION WIDTH 19.9 % (11.5-15.0); WHITE BLOOD COUNT (AUTO) 21.7 K/uL (4.3-11.0)
[2023-11-22 20:15] LABS: HEMATOCRIT 19 % (39-51); HEMOGLOBIN 5.8 g/dL (13.5-17.5)
[2023-11-22] MEDS ORDERED: ALBUTEROL FS 2.5 MG/3 ML VIAL.NEB NEB PRN (20:30)
[2023-11-22] MEDS ORDERED: IPRATROPIUM NEB FS 0.5 MG/2.5 ML AMPUL.NEB NEB PRN (20:30)
[2023-11-22] MEDS ORDERED: ONDANSETRON HCL/PF 4 MG/2 ML VIAL IVP PRN (20:30)
[2023-11-22] MEDS ORDERED: ACETAMINOPHEN 650 MG/SUPP.RECT RC ONE (20:41)
[2023-11-22] MEDS: ACETAMINOPHEN 650 MG/SUPP.RECT RC ONE (20:42)
[2023-11-22 20:47] LABS: LYMPHOCYTES % (MANUAL) 5 % (16-48); MONOCYTES % (MANUAL) 3 % (0-11.0); NEUTROPHILS % (MANUAL) 92 (42-76)
[2023-11-22 20:48] LABS: ANISOCYTOSIS 1+; PLATELET ESTIMATE ADEQUATE
[2023-11-22] MEDS ORDERED: GLUCERNA 1.5 1,000 ML BOTTLE GT SCH (21:00)
[2023-11-22] MEDS: CARBOXYMETHYLCELLULOSE SODIUM 0.4 ML DROPERETTE EACHEYE SCH (21:00)
[2023-11-22] MEDS: NOREPINEPHRINE 8 MG in IV D5W 242 ML IV PRN (21:53)
[2023-11-22] MEDS: DOCUSATE SODIUM 100 MG CAPSULE PO SCH (22:00)
[2023-11-22] MEDS: SENNOSIDES 8.6 MG TABLET GT SCH (22:00)
[2023-11-22] MEDS: GABAPENTIN 300 MG CAPSULE GT SCH (23:30)
[2023-11-22] MEDS: PANTOPRAZOLE 40 MG VIAL IV SCH (23:30)
[2023-11-22] MEDS: ATORVASTATIN 40 MG TABLET GT SCH (23:30)
[2023-11-23] VITALS (92 sets, daily range): BP systolic 82–137; BP diastolic 61–92; TEMP 97.7–98.5; O2SAT 98–100
[2023-11-23] MEDS: BLOOD SUGAR DIAGNOSTIC 1 EACH STRIP IN SCH (00:32)
[2023-11-23] MEDS: IV NS 0.9% 1,000 ML IV PRN (03:37)
[2023-11-23 05:35] LABS: BASOPHILS % (AUTO) 0.2 % (0.0-2.0); EOSINOPHILS % (AUTO) 0.1 % (0.0-6.0); LYMPHOCYTES # (AUTO) 0.5 K/uL (0.8-4.8); LYMPHOCYTES % (AUTO) 2.8 % (20.0-44.0); MEAN CORPUSCULAR HEMOGLOBIN 25 PG (26.0-33.0); MEAN CORPUSCULAR HGB CONC 30 g/dl (31.0-36.0); MEAN CORPUSCULAR VOLUME 83 fL (80-96); MONOCYTES # (AUTO) 0.5 K/uL (0.1-1.30); MONOCYTES % (AUTO) 3.3 % (2.0-12.0); NEUTROPHILS # (AUTO) 15.1 K/uL (1.8-8.9); NEUTROPHILS % (AUTO) 93.6 % (43.0-81.0); PLATELET COUNT (AUTO) 279 K/uL (150-450); RED BLOOD CELL COUNT(AUTO) 2.47 MIL/uL (4.5-6.0); RED CELL DISTRIBUTION WIDTH 20.2 % (11.5-15.0); WHITE BLOOD COUNT (AUTO) 16.2 K/uL (4.3-11.0)
[2023-11-23 05:38] LABS: CALCIUM, SERUM 8.7 mg/dL (8.5-10.1); CREATININE 3.1 mg/dL (0.6-1.3); HEMATOCRIT 20 % (39-51); HEMOGLOBIN 6.2 g/dL (13.5-17.5); MAGNESIUM 2.7 mg/dL (1.8-2.4); PHOSPHORUS 7.1 mg/dL (2.5-4.9)
[2023-11-23 07:41] LABS: ANISOCYTOSIS 1+; BAND % (MANUAL) 8 % (0.0-5.0); HYPOCHROMASIA 2+; LYMPHOCYTES % (MANUAL) 2 % (16-48); MONOCYTES % (MANUAL) 5 % (0-11.0); NEUTROPHILS % (MANUAL) 85 (42-76); PLATELET ESTIMATE ADEQUATE
[2023-11-23 07:42] LABS: OVALOCYTES 1+
[2023-11-23] MEDS: MULTIVITAMINS,THERAGRAN 1 UDTAB TABLET GT SCH (08:43)
[2023-11-23] MEDS: FINASTERIDE (5 MG) 5 MG TABLET GT SCH (08:43)
[2023-11-23] MEDS: FERROUS SULFATE (325 MG) 325 MG/TAB TABLET GT SCH (08:43)
[2023-11-23] MEDS: ASCORBIC ACID 500 MG TABLET GT SCH (08:43)
[2023-11-23] MEDS: ACETAMINOPHEN 650 MG/20.3 ML UDC GT SCH (08:44)
[2023-11-23] MEDS: PROSOURCE / PROSTAT (PYXIS) 30 ML UDC GT SCH (08:48)
[2023-11-23] MEDS: CHLORHEXIDINE GLUCONATE 15 ML UDC MM SCH (08:58)
[2023-11-23] MEDS ORDERED: MULTIVITAMIN LIQ 5 ML UDC GT SCH (09:00)
[2023-11-23] MEDS: HYDROCORTISONE SOD SUCCINATE 100 MG/2 ML VIAL IV SCH (09:41)
[2023-11-23] MEDS: IV NS 0.9% 500 ML IV ONE (10:58)
[2023-11-23 16:58] LABS: THYROID STIMULATING HORMONE 1.756 uIU/mL (0.358-3.74)
[2023-11-23] MEDS: INSULIN REGULAR, HUMAN 100 UNIT/ML 3 ML VIAL SQ PRN (18:00)
[2023-11-23] MEDS: CEFEPIME 1 GM in IV D5W 50 ML IV SCH (18:11)
[2023-11-23] MEDS: VANCOMYCIN 1 GM in IV D5W 250ml IV SCH (20:37)
[2023-11-24] VITALS (58 sets, daily range): BP systolic 98–148; BP diastolic 66–119; TEMP 97.5–98.9; O2SAT 93–100
[2023-11-24] MEDS ORDERED: GLUCERNA 1.2 1,000 ML BOTTLE NG PRN
[2023-11-24] MEDS: GLUCERNA 1.2 1,000 ML BOTTLE NG SCH (00:29)
[2023-11-24 05:05] LABS: BASOPHILS % (AUTO) 0.1 % (0.0-2.0); EOSINOPHILS % (AUTO) 0.1 % (0.0-6.0); LYMPHOCYTES # (AUTO) 0.9 K/uL (0.8-4.8); LYMPHOCYTES % (AUTO) 5.7 % (20.0-44.0); MEAN CORPUSCULAR HEMOGLOBIN 26 PG (26.0-33.0); MEAN CORPUSCULAR HGB CONC 32 g/dl (31.0-36.0); MEAN CORPUSCULAR VOLUME 81 fL (80-96); MONOCYTES # (AUTO) 0.4 K/uL (0.1-1.30); MONOCYTES % (AUTO) 2.5 % (2.0-12.0); NEUTROPHILS # (AUTO) 14.3 K/uL (1.8-8.9); NEUTROPHILS % (AUTO) 91.6 % (43.0-81.0); PLATELET COUNT (AUTO) 226 K/uL (150-450); RED CELL DISTRIBUTION WIDTH 19.3 % (11.5-15.0); WHITE BLOOD COUNT (AUTO) 15.7 K/uL (4.3-11.0)
[2023-11-24 05:11] LABS: HEMATOCRIT 20 % (39-51); HEMOGLOBIN 6.4 g/dL (13.5-17.5)
[2023-11-24 05:21] LABS: CALCIUM, SERUM 7.6 mg/dL (8.5-10.1); CREATININE 2.2 mg/dL (0.6-1.3); POTASSIUM 3.6 mmol/L (3.5-5.1)
[2023-11-24 05:45] LABS: ANISOCYTOSIS 1+; BASOPHILS % (MANUAL) 0 % (0.0-2.0); EOSINOPHILS % (MANUAL) 0 % (0-4); HYPOCHROMASIA 1+; LYMPHOCYTES % (MANUAL) 5 % (16-48); MONOCYTES % (MANUAL) 2 % (0-11.0); NEUTROPHILS % (MANUAL) 93 (42-76); OVALOCYTES 1+; PLATELET ESTIMATE ADEQUATE
[2023-11-24] MEDS: VANCOMYCIN 750 MG in IV D5W 250 ML IV SCH (08:22)
[2023-11-24] MEDS: DAKINS QUARTER STRENGTH (0.125%) 480 ML BOTTLE TOP SCH (08:51)
[2023-11-24] MEDS: ACETAMINOPHEN 650 MG/20.3 ML UDC GT SCH (08:52)
[2023-11-24] MEDS: NEOMY SULF/BACITRAC ZN/POLY 15 GM TUBE TP SCH (08:52)
[2023-11-24] MEDS: ARGININE/GLUTAMINE/CALCIUM BMB 1 EACH POWD.PACK GT SCH (08:54)
[2023-11-24] MEDS: CEFEPIME 1 GM in IV D5W 50 ML IV SCH (09:13)
[2023-11-24] MEDS ORDERED: SILVER NITRATE APPLICATOR 1 EA BOX TP PRN (13:00)
[2023-11-24 14:24] LABS: OCCULT BLOOD STOOL POSITIVE (NEGATIVE)
[2023-11-24 15:43] LABS: HEMOGLOBIN 7.6 g/dL (13.5-17.5)
[2023-11-24] MEDS: CELLULOSE,OXIDIZED 1 EACH EACH MC ONE (22:00)
[2023-11-24] MEDS: DOCUSATE SODIUM 100 MG CAPSULE PO SCH (22:00)
[2023-11-24 23:11] LABS: HEMOGLOBIN 7.8 g/dL (13.5-17.5)
[2023-11-25] VITALS (39 sets, daily range): BP systolic 128–165; BP diastolic 61–122; TEMP 97.6–98.8; O2SAT 95–100
[2023-11-25 07:18] LABS: BASOPHILS # (AUTO) 0.1 K/uL (0.0-0.2); BASOPHILS % (AUTO) 0.4 % (0.0-2.0); HEMATOCRIT 24 % (39-51); HEMOGLOBIN 7.5 g/dL (13.5-17.5); LYMPHOCYTES # (AUTO) 0.8 K/uL (0.8-4.8); LYMPHOCYTES % (AUTO) 4.7 % (20.0-44.0); MEAN CORPUSCULAR HEMOGLOBIN 26 PG (26.0-33.0); MEAN CORPUSCULAR HGB CONC 32 g/dl (31.0-36.0); MEAN CORPUSCULAR VOLUME 82 fL (80-96); MONOCYTES # (AUTO) 0.6 K/uL (0.1-1.30); MONOCYTES % (AUTO) 3.2 % (2.0-12.0); NEUTROPHILS # (AUTO) 16.5 K/uL (1.8-8.9); NEUTROPHILS % (AUTO) 91.7 % (43.0-81.0); PLATELET COUNT (AUTO) 222 K/uL (150-450); RED BLOOD CELL COUNT(AUTO) 2.88 MIL/uL (4.5-6.0)
[2023-11-25 07:27] LABS: CALCIUM, SERUM 7.9 mg/dL (8.5-10.1); CREATININE 1.4 mg/dL (0.6-1.3); MAGNESIUM 2.7 mg/dL (1.8-2.4); PHOSPHORUS 4.5 mg/dL (2.5-4.9)
[2023-11-25 07:44] LABS: POTASSIUM 2.7 mmol/L (3.5-5.1)
[2023-11-25] MEDS: THERAHONEY GEL 1.5 OZ TUBE TP SCH (08:28)
[2023-11-25] MEDS: POTASSIUM CL. PREMIX PERIPHER. 50 ML IV SCH (09:24)
[2023-11-25 15:09] LABS: BILIRUBIN,URINE NEGATIVE (NEGATIVE); BLOOD, URINE 3+ Ery/uL (NEGATIVE); COLOR,URINE YELLOW (YELLOW); KETONES,URINE NEGATIVE (NEGATIVE); LEUKOCYTE ESTERASE ,URINE 2+ (NEGATIVE); NITRITE, URINE NEGATIVE (NEGATIVE); PROTEIN,URINE 1+ mg/dl (NEGATIVE); UGLUCOSE NEGATIVE (NEGATIVE); UROBILINOGEN,URINE 0.2 EU/dL (0.2)
[2023-11-25] MEDS: GLUCERNA 1.2 1,000 ML BOTTLE NG SCH (15:11)
[2023-11-25 15:12] LABS: APPEARANCE,URINE HAZY (CLEAR)
[2023-11-25 15:52] LABS: HEMOGLOBIN 7.5 g/dL (13.5-17.5)
[2023-11-25 16:25] LABS: ADD URINE CULTURE YES; BACTERIA,URINE Moderate /HPF (None Seen); RBC,URINE TOO NUMEROUS TO COUN /HPF (0-2); SQUAMOUS EPITHELIAL CELL,UR None Seen /HPF (None Seen); WBC,URINE TOO NUMEROUS TO COUN /HPF (0-3)
[2023-11-25] MEDS: VANCOMYCIN 750 MG in IV D5W 250 ML IV SCH (20:00)
[2023-11-25] MEDS: CEFEPIME 2 GM in IV D5W 100 ML IV SCH (20:35)
[2023-11-25] MEDS: ARGININE/GLUTAMINE/CALCIUM BMB 1 EACH POWD.PACK GT SCH (20:43)
[2023-11-25] MEDS: PROSOURCE / PROSTAT (PYXIS) 30 ML UDC GT SCH (20:44)
[2023-11-25] MEDS: METRONIDAZOLE 500 MG TABLET PO SCH (21:56)
[2023-11-25 23:32] LABS: HEMOGLOBIN 8.1 g/dL (13.5-17.5)
[2023-11-26] VITALS (15 sets, daily range): BP systolic 121–172; BP diastolic 65–97; TEMP 97.6–98.2; O2SAT 95–100
[2023-11-26] MEDS ORDERED: hydrALAZINE HCL IV 20 MG VIAL IV PRN (02:30)
[2023-11-26] MEDS: hydrALAZINE HCL IV 20 MG VIAL IV ONE (02:33)
[2023-11-26] MEDS ORDERED: MEROPENEM 1 G in IV NS 0.9% 100 ML IV SCH (03:00)
[2023-11-26 03:46] LABS: BASOPHILS % (AUTO) 0.2 % (0.0-2.0); EOSINOPHILS % (AUTO) 0.1 % (0.0-6.0); HEMATOCRIT 25 % (39-51); HEMOGLOBIN 7.9 g/dL (13.5-17.5); LYMPHOCYTES # (AUTO) 0.7 K/uL (0.8-4.8); LYMPHOCYTES % (AUTO) 3.3 % (20.0-44.0); MEAN CORPUSCULAR HEMOGLOBIN 26 PG (26.0-33.0); MEAN CORPUSCULAR HGB CONC 32 g/dl (31.0-36.0); MEAN CORPUSCULAR VOLUME 82 fL (80-96); MONOCYTES # (AUTO) 0.6 K/uL (0.1-1.30); NEUTROPHILS # (AUTO) 19.3 K/uL (1.8-8.9); NEUTROPHILS % (AUTO) 93.4 % (43.0-81.0); PLATELET COUNT (AUTO) 209 K/uL (150-450); RED BLOOD CELL COUNT(AUTO) 3.03 MIL/uL (4.5-6.0); RED CELL DISTRIBUTION WIDTH 19.1 % (11.5-15.0); WHITE BLOOD COUNT (AUTO) 20.7 K/uL (4.3-11.0)
[2023-11-26 04:16] LABS: CALCIUM, SERUM 8.3 mg/dL (8.5-10.1); POTASSIUM 4.2 mmol/L (3.5-5.1)
[2023-11-26] MEDS: VANCOMYCIN 750 MG in IV D5W 250 ML IV SCH (08:44)
[2023-11-26 11:57] LABS: ALBUMIN 1.5 g/dL (3.4-5.0); BILIRUBIN,DIRECT 0.2 mg/dL (0.0-0.2); BILIRUBIN,TOTAL 0.5 mg/dL (0.2-1.0); TOTAL PROTEIN, SERUM 7.7 g/dL (6.4-8.2)
[2023-11-26 15:09] LABS: HEMOGLOBIN 7.7 g/dL (13.5-17.5)
[2023-11-26] MEDS ORDERED: MEROPENEM 500 MG in IV NS 0.9% 50 ML IV SCH (18:00)
[2023-11-26] MEDS: MEROPENEM 1 G in IV NS 0.9% 100 ML IV ONE (18:49)
[2023-11-26 19:00] LABS: CALCIUM, SERUM 8.5 mg/dL (8.5-10.1); CREATININE 0.9 mg/dL (0.6-1.3); MAGNESIUM 2.3 mg/dL (1.8-2.4); POTASSIUM 3.9 mmol/L (3.5-5.1)
[2023-11-27] VITALS: BP_SYST 144; BP_SYST 146; BP_DIAS 85; BP_DIAS 88; TEMP 97.4; O2SAT 100
[2023-11-27 00:02] LABS: HEMOGLOBIN 7.6 g/dL (13.5-17.5)
[2023-11-27] MEDS: MEROPENEM 1 G in IV NS 0.9% 100 ML IV SCH (03:16)
[2023-11-27 04:00] VITALS: BP 140/91; TEMP 97.5; O2SAT 100
[2023-11-27 07:00] VITALS: BP 129/96; TEMP 97.7; O2SAT 99
[2023-11-27 08:02] LABS: ALBUMIN 1.5 g/dL (3.4-5.0); BILIRUBIN,TOTAL 0.5 mg/dL (0.2-1.0); CALCIUM, SERUM 9.4 mg/dL (8.5-10.1); CREATININE 0.8 mg/dL (0.6-1.3); MAGNESIUM 2.5 mg/dL (1.8-2.4); POTASSIUM 3.5 mmol/L (3.5-5.1); TOTAL PROTEIN, SERUM 7.6 g/dL (6.4-8.2)
[2023-11-27 08:03] LABS: EOSINOPHILS % (AUTO) 0.1 % (0.0-6.0); HEMATOCRIT 26 % (39-51); LYMPHOCYTES # (AUTO) 1.2 K/uL (0.8-4.8); LYMPHOCYTES % (AUTO) 6.2 % (20.0-44.0); MEAN CORPUSCULAR HEMOGLOBIN 25 PG (26.0-33.0); MEAN CORPUSCULAR HGB CONC 31 g/dl (31.0-36.0); MEAN CORPUSCULAR VOLUME 82 fL (80-96); MONOCYTES # (AUTO) 0.9 K/uL (0.1-1.30); MONOCYTES % (AUTO) 4.8 % (2.0-12.0); NEUTROPHILS # (AUTO) 17.3 K/uL (1.8-8.9); NEUTROPHILS % (AUTO) 88.9 % (43.0-81.0); PLATELET COUNT (AUTO) 218 K/uL (150-450); RED BLOOD CELL COUNT(AUTO) 3.14 MIL/uL (4.5-6.0); RED CELL DISTRIBUTION WIDTH 19.5 % (11.5-15.0); WHITE BLOOD COUNT (AUTO) 19.5 K/uL (4.3-11.0)
[2023-11-27] MEDS: Z GUARD REMEDY 4 OZ OINT TP PRN (09:54)
[2023-11-27] MEDS: VANCOMYCIN 750 MG in IV D5W 250 ML IV SCH (11:41)
[2023-11-27 12:31] LABS: LYMPHOCYTES % (MANUAL) 6 % (16-48); MONOCYTES % (MANUAL) 5 % (0-11.0); NEUTROPHILS % (MANUAL) 89 (42-76); PLATELET ESTIMATE ADEQUATE
[2023-11-27 12:33] LABS: ANISOCYTOSIS 1+
[2023-11-27 12:34] LABS: TARGET CELLS 1+
[2023-11-27] MEDS: HYDROCORTISONE SOD SUCCINATE 100 MG/2 ML VIAL IV SCH (12:37)
[2023-11-27 15:56] LABS: HEMOGLOBIN 7.7 g/dL (13.5-17.5)
[2023-11-27 16:00] VITALS: BP 129/90; TEMP 98.5; O2SAT 94
[2023-11-27 20:00] VITALS: BP 155/71; TEMP 97.6; O2SAT 98
[2023-11-27 23:22] LABS: HEMOGLOBIN 7.8 g/dL (13.5-17.5)
[2023-11-28 04:45] VITALS: O2SAT 100
[2023-11-28 06:43] LABS: EOSINOPHILS % (AUTO) 0.1 % (0.0-6.0); HEMATOCRIT 24 % (39-51); HEMOGLOBIN 7.5 g/dL (13.5-17.5); LYMPHOCYTES # (AUTO) 1.2 K/uL (0.8-4.8); LYMPHOCYTES % (AUTO) 6.2 % (20.0-44.0); MEAN CORPUSCULAR HEMOGLOBIN 26 PG (26.0-33.0); MEAN CORPUSCULAR HGB CONC 31 g/dl (31.0-36.0); MEAN CORPUSCULAR VOLUME 84 fL (80-96); MONOCYTES # (AUTO) 0.7 K/uL (0.1-1.30); MONOCYTES % (AUTO) 3.7 % (2.0-12.0); NEUTROPHILS # (AUTO) 16.8 K/uL (1.8-8.9); PLATELET COUNT (AUTO) 211 K/uL (150-450); RED BLOOD CELL COUNT(AUTO) 2.92 MIL/uL (4.5-6.0); RED CELL DISTRIBUTION WIDTH 19.5 % (11.5-15.0); WHITE BLOOD COUNT (AUTO) 18.6 K/uL (4.3-11.0)
[2023-11-28 06:44] LABS: CALCIUM, SERUM 8.8 mg/dL (8.5-10.1); CREATININE 0.8 mg/dL (0.6-1.3); PHOSPHORUS 2.4 mg/dL (2.5-4.9); POTASSIUM 3.4 mmol/L (3.5-5.1)
[2023-11-28 07:30] VITALS: BP 164/90; TEMP 98.1; O2SAT 100
[2023-11-28] MEDS: PANTOPRAZOLE 40 MG/PACK PACK GT SCH (08:41)
[2023-11-28 09:27] LABS: LYMPHOCYTES % (MANUAL) 6 % (16-48); MONOCYTES % (MANUAL) 6 % (0-11.0); NEUTROPHILS % (MANUAL) 88 (42-76); PLATELET ESTIMATE ADEQUATE
[2023-11-28 09:39] LABS: ANISOCYTOSIS 1+
[2023-11-28 09:56] LABS: STOMATOCYTES 1+
[2023-11-28] MEDS: POTASSIUM CHLORIDE 20 MEQ POWDER PACKET NG SCH (11:32)
[2023-11-28] MEDS: VANCOMYCIN 1 GM in IV D5W 250ml IV SCH (11:35)
[2023-11-28 15:58] VITALS: O2SAT 100
[2023-11-28 16:00] VITALS: BP 159/96; TEMP 99.1; O2SAT 100
[2023-11-28] MEDS: NEUTRA PHOS 1 POWD.PACKET GT ONE (17:15)
[2023-11-28 20:00] VITALS: BP 161/98; O2SAT 100
[2023-11-28 20:27] VITALS: O2SAT 100
[2023-11-28] MEDS: HYDROCORTISONE SOD SUCCINATE 100 MG/2 ML VIAL IV SCH (21:29)
[2023-11-29] VITALS: BP 178/104; O2SAT 100
[2023-11-29] MEDS: hydrALAZINE HCL IV 20 MG VIAL IV ONE (02:22)
[2023-11-29 04:00] VITALS: BP 134/82; O2SAT 100
[2023-11-29 07:00] VITALS: BP_SYST 132; BP_SYST 149; BP_DIAS 88; BP_DIAS 94; TEMP 90.3; TEMP 90.5; O2SAT 100
[2023-11-29] MEDS: HYDROCORTISONE SOD SUCCINATE 100 MG/2 ML VIAL IV SCH (09:30)
[2023-11-29 10:23] LABS: BASOPHILS % (AUTO) 0.2 % (0.0-2.0); EOSINOPHILS % (AUTO) 0.1 % (0.0-6.0); HEMATOCRIT 26 % (39-51); HEMOGLOBIN 8.2 g/dL (13.5-17.5); LYMPHOCYTES % (AUTO) 6.3 % (20.0-44.0); MEAN CORPUSCULAR HEMOGLOBIN 26 PG (26.0-33.0); MEAN CORPUSCULAR HGB CONC 31 g/dl (31.0-36.0); MEAN CORPUSCULAR VOLUME 83 fL (80-96); MONOCYTES # (AUTO) 0.5 K/uL (0.1-1.30); MONOCYTES % (AUTO) 2.8 % (2.0-12.0); NEUTROPHILS # (AUTO) 14.8 K/uL (1.8-8.9); NEUTROPHILS % (AUTO) 90.6 % (43.0-81.0); PLATELET COUNT (AUTO) 189 K/uL (150-450); RED BLOOD CELL COUNT(AUTO) 3.17 MIL/uL (4.5-6.0); RED CELL DISTRIBUTION WIDTH 19.8 % (11.5-15.0); WHITE BLOOD COUNT (AUTO) 16.4 K/uL (4.3-11.0)
[2023-11-29 11:30] VITALS: BP 161/98; TEMP 90.5; O2SAT 100
[2023-11-29 11:55] LABS: CALCIUM, SERUM 8.7 mg/dL (8.5-10.1); CREATININE 0.6 mg/dL (0.6-1.3); MAGNESIUM 2.1 mg/dL (1.8-2.4); PHOSPHORUS 2.9 mg/dL (2.5-4.9); POTASSIUM 3.6 mmol/L (3.5-5.1)
[2023-11-29 13:02] LABS: BAND % (MANUAL) 3 % (0.0-5.0); LYMPHOCYTES % (MANUAL) 7 % (16-48); METAMYELOCYTES % 1 % (0-0); MONOCYTES % (MANUAL) 3 % (0-11.0); NEUTROPHILS % (MANUAL) 85 (42-76); PROMYELOCYTES % 1 % (0-0)
[2023-11-29 13:03] LABS: ANISOCYTOSIS 1+; PLATELET ESTIMATE ADEQUATE; STOMATOCYTES 1+
[2023-11-29 20:00] VITALS: BP 141/98; TEMP 92.6; O2SAT 97
[2023-11-29 23:38] VITALS: O2SAT 97
[2023-11-30] VITALS (67 sets, daily range): BP systolic 42–145; BP diastolic 28–107; TEMP 92.8–100.6; O2SAT 66–100
[2023-11-30] MEDS ORDERED: VANCOMYCIN HCL 125 MG/2.5 ML ORAL.SUSP PO SCH
[2023-11-30] MEDS: VANCOMYCIN HCL 125 MG/2.5 ML ORAL.SUSP PO SCH (07:27)
[2023-11-30 08:37] LABS: BASOPHILS % (AUTO) 0.1 % (0.0-2.0); EOSINOPHILS # (AUTO) 0.1 K/uL (0.0-0.7); EOSINOPHILS % (AUTO) 0.5 % (0.0-6.0); HEMATOCRIT 26 % (39-51); HEMOGLOBIN 7.8 g/dL (13.5-17.5); LYMPHOCYTES # (AUTO) 0.9 K/uL (0.8-4.8); LYMPHOCYTES % (AUTO) 5.4 % (20.0-44.0); MEAN CORPUSCULAR HEMOGLOBIN 26 PG (26.0-33.0); MEAN CORPUSCULAR HGB CONC 30 g/dl (31.0-36.0); MEAN CORPUSCULAR VOLUME 85 fL (80-96); MONOCYTES # (AUTO) 0.5 K/uL (0.1-1.30); MONOCYTES % (AUTO) 2.8 % (2.0-12.0); NEUTROPHILS # (AUTO) 14.8 K/uL (1.8-8.9); NEUTROPHILS % (AUTO) 91.2 % (43.0-81.0); PLATELET COUNT (AUTO) 186 K/uL (150-450); RED BLOOD CELL COUNT(AUTO) 3.02 MIL/uL (4.5-6.0); RED CELL DISTRIBUTION WIDTH 20.5 % (11.5-15.0); WHITE BLOOD COUNT (AUTO) 16.2 K/uL (4.3-11.0)
[2023-11-30 08:47] LABS: ABG BASE EXCESS -1.1 mmol/L; ABG OXYGEN SATURATION 85.1 % (92.0-98.5); ABG PCO2 70.2 mmHg (35.0-45.0); ABG PH 7.209 (7.350-7.450); ABG PO2 62.4 mmHg (75.0-100.0); ABG TOTAL HEMOGLOBIN 8.8 G/dL (13.5-18.0); AaDO2 580.4 mmHg; COHb 0.4 % (0.5-1.5); MetHb 0.3 % (0.0-1.5); O2Hb 84.5 % (94.0-97.0); SITE, ABG Right Radial
[2023-11-30] MEDS: NOREPINEPHRINE 8 MG in IV D5W 242 ML IV PRN (09:34)
[2023-11-30 10:07] LABS: CALCIUM, SERUM 9.1 mg/dL (8.5-10.1); CREATININE 0.6 mg/dL (0.6-1.3); POTASSIUM 3.4 mmol/L (3.5-5.1)
[2023-11-30] MEDS: IV NS 0.9% 1,000 ML IV ONE (10:19)
[2023-11-30] MEDS ORDERED: PHENYLEPHRINE 50 MG in IV NS 0.9% 245 ML IV PRN (10:30)
[2023-11-30] MEDS ORDERED: IV D5/0.45 NACL 500 ML IV PRN (11:30)
[2023-11-30 11:52] LABS: ABG BASE EXCESS 3.4 mmol/L; ABG OXYGEN SATURATION 85.1 % (92.0-98.5); ABG PCO2 57.7 mmHg (35.0-45.0); ABG PH 7.335 (7.350-7.450); ABG PO2 54.6 mmHg (75.0-100.0); ABG TOTAL HEMOGLOBIN 9.5 G/dL (13.5-18.0); COHb 0.3 % (0.5-1.5); MetHb 0.5 % (0.0-1.5); O2Hb 84.4 % (94.0-97.0); PEEP,BG 8 cm H2O; SITE, ABG Right Radial; VT, ABG 475 mL
[2023-11-30] MEDS: ALBUMIN 25% 12.5 GM/50 ML BOTTLE IV ONE (12:08)
[2023-11-30] MEDS: HYDROCORTISONE SOD SUCCINATE 100 MG/2 ML VIAL IV SCH (14:26)
[2023-11-30] MEDS: NEUTRA PHOS 1 POWD.PACKET NG ONE (16:07)
[2023-11-30] MEDS: ACETAMINOPHEN 650 MG/20.3 ML UDC GT PRN (20:43)
[2023-12-01] VITALS (83 sets, daily range): BP systolic 65–149; BP diastolic 36–86; TEMP 97.4–101.8; O2SAT 87–100
[2023-12-01 05:20] LABS: BASOPHILS # (AUTO) 0.1 K/uL (0.0-0.2); BASOPHILS % (AUTO) 0.3 % (0.0-2.0); EOSINOPHILS % (AUTO) 0.1 % (0.0-6.0); HEMATOCRIT 23 % (39-51); HEMOGLOBIN 7.1 g/dL (13.5-17.5); LYMPHOCYTES # (AUTO) 3.2 K/uL (0.8-4.8); LYMPHOCYTES % (AUTO) 10.5 % (20.0-44.0); MEAN CORPUSCULAR HEMOGLOBIN 26 PG (26.0-33.0); MEAN CORPUSCULAR HGB CONC 31 g/dl (31.0-36.0); MEAN CORPUSCULAR VOLUME 84 fL (80-96); MONOCYTES # (AUTO) 0.9 K/uL (0.1-1.30); MONOCYTES % (AUTO) 2.9 % (2.0-12.0); NEUTROPHILS # (AUTO) 25.9 K/uL (1.8-8.9); NEUTROPHILS % (AUTO) 86.2 % (43.0-81.0); PLATELET COUNT (AUTO) 145 K/uL (150-450); RED BLOOD CELL COUNT(AUTO) 2.73 MIL/uL (4.5-6.0); RED CELL DISTRIBUTION WIDTH 20.6 % (11.5-15.0)
[2023-12-01 05:31] LABS: ALBUMIN 1.6 g/dL (3.4-5.0); BILIRUBIN,DIRECT 0.2 mg/dL (0.0-0.2); BILIRUBIN,TOTAL 0.4 mg/dL (0.2-1.0); CALCIUM, SERUM 8.6 mg/dL (8.5-10.1); CREATININE 1.2 mg/dL (0.6-1.3); POTASSIUM 3.9 mmol/L (3.5-5.1); TOTAL PROTEIN, SERUM 6.8 g/dL (6.4-8.2)
[2023-12-01 05:42] LABS: BAND % (MANUAL) 2 % (0.0-5.0); BASOPHILS % (MANUAL) 0 % (0.0-2.0); EOSINOPHILS % (MANUAL) 0 % (0-4); LYMPHOCYTES % (MANUAL) 12 % (16-48); MONOCYTES % (MANUAL) 2 % (0-11.0); NEUTROPHILS % (MANUAL) 84 (42-76)
[2023-12-01 05:43] LABS: ANISOCYTOSIS 1+; HYPOCHROMASIA 1+; OVALOCYTES 1+; PLATELET ESTIMATE ADEQUATE; TARGET CELLS 1+
[2023-12-01] MEDS: LIDOCAINE 1%-EPI 1:100,000 20 ML VIAL TP ONE (07:56)
[2023-12-01 08:30] LABS: ABG BASE EXCESS -0.9 mmol/L; ABG OXYGEN SATURATION 95.9 % (92.0-98.5); ABG PH 7.363 (7.350-7.450); ABG PO2 87.1 mmHg (75.0-100.0); ABG TOTAL HEMOGLOBIN 8.1 G/dL (13.5-18.0); AaDO2 219.9 mmHg; COHb 0.3 % (0.5-1.5); MetHb 0.3 % (0.0-1.5); O2Hb 95.3 % (94.0-97.0); PEEP,BG 10 cm H2O; SITE, ABG Right Radial; VT, ABG 475 mL
[2023-12-01] MEDS: VANCOMYCIN 500 MG in IV D5W 100 ML IV SCH (13:17)
[2023-12-02] VITALS (28 sets, daily range): BP systolic 93–137; BP diastolic 61–84; TEMP 96.8–97.7; O2SAT 93–100
[2023-12-02 04:50] LABS: BASOPHILS % (AUTO) 0.1 % (0.0-2.0); HEMATOCRIT 21 % (39-51); LYMPHOCYTES # (AUTO) 1.3 K/uL (0.8-4.8); LYMPHOCYTES % (AUTO) 4.5 % (20.0-44.0); MEAN CORPUSCULAR HEMOGLOBIN 27 PG (26.0-33.0); MEAN CORPUSCULAR HGB CONC 31 g/dl (31.0-36.0); MEAN CORPUSCULAR VOLUME 84 fL (80-96); MONOCYTES # (AUTO) 0.4 K/uL (0.1-1.30); MONOCYTES % (AUTO) 1.3 % (2.0-12.0); NEUTROPHILS # (AUTO) 28.1 K/uL (1.8-8.9); NEUTROPHILS % (AUTO) 94.1 % (43.0-81.0); PLATELET COUNT (AUTO) 116 K/uL (150-450); RED BLOOD CELL COUNT(AUTO) 2.52 MIL/uL (4.5-6.0); RED CELL DISTRIBUTION WIDTH 21.2 % (11.5-15.0); WHITE BLOOD COUNT (AUTO) 29.8 K/uL (4.3-11.0)
[2023-12-02 05:10] LABS: CALCIUM, SERUM 8.6 mg/dL (8.5-10.1); CREATININE 1.3 mg/dL (0.6-1.3); MAGNESIUM 2.2 mg/dL (1.8-2.4); PHOSPHORUS 5.4 mg/dL (2.5-4.9); POTASSIUM 3.6 mmol/L (3.5-5.1)
[2023-12-02 06:01] LABS: HEMOGLOBIN 6.7 g/dL (13.5-17.5)
[2023-12-02 06:21] LABS: ANISOCYTOSIS 1+; BAND % (MANUAL) 2 % (0.0-5.0); LYMPHOCYTES % (MANUAL) 8 % (16-48); NEUTROPHILS % (MANUAL) 88 (42-76); PLATELET ESTIMATE DECREASED
[2023-12-02 06:27] LABS: MONOCYTES % (MANUAL) 2 % (0-11.0)
[2023-12-02] MEDS: HYDROCORTISONE SOD SUCCINATE 100 MG/2 ML VIAL IV SCH (13:13)
[2023-12-02] MEDS ORDERED: VANCOMYCIN 500 MG in IV D5W 100 ML IV SCH (14:00)
[2023-12-03] VITALS: BP 137/84; TEMP 97.7; O2SAT 100
[2023-12-03 04:00] VITALS: BP 139/79; TEMP 97.7; O2SAT 100
[2023-12-03 07:14] LABS: HEMATOCRIT 25 % (39-51); LYMPHOCYTES # (AUTO) 1.1 K/uL (0.8-4.8); LYMPHOCYTES % (AUTO) 4.4 % (20.0-44.0); MEAN CORPUSCULAR HEMOGLOBIN 27 PG (26.0-33.0); MEAN CORPUSCULAR HGB CONC 32 g/dl (31.0-36.0); MEAN CORPUSCULAR VOLUME 84 fL (80-96); MONOCYTES # (AUTO) 0.6 K/uL (0.1-1.30); MONOCYTES % (AUTO) 2.2 % (2.0-12.0); NEUTROPHILS # (AUTO) 23.8 K/uL (1.8-8.9); NEUTROPHILS % (AUTO) 93.4 % (43.0-81.0); PLATELET COUNT (AUTO) 113 K/uL (150-450); WHITE BLOOD COUNT (AUTO) 25.5 K/uL (4.3-11.0)
[2023-12-03 07:59] LABS: CALCIUM, SERUM 8.5 mg/dL (8.5-10.1); CREATININE 1.3 mg/dL (0.6-1.3); POTASSIUM 3.5 mmol/L (3.5-5.1)
[2023-12-03 08:00] VITALS: BP 149/84; TEMP 97.5; O2SAT 99
[2023-12-03 12:00] VITALS: BP 168/91; TEMP 97.3; O2SAT 100; O2SAT 98
[2023-12-03] MEDS: HYDROCORTISONE SOD SUCCINATE 100 MG/2 ML VIAL IV SCH (12:30)
[2023-12-03] MEDS: VANCOMYCIN 500 MG in IV D5W 100 ML IV SCH (14:42)
[2023-12-03 15:14] LABS: BAND % (MANUAL) 2 % (0.0-5.0); LYMPHOCYTES % (MANUAL) 5 % (16-48); MONOCYTES % (MANUAL) 3 % (0-11.0); NEUTROPHILS % (MANUAL) 90 (42-76)
[2023-12-03 15:15] LABS: ANISOCYTOSIS 1+; OVALOCYTES 1+; PLATELET ESTIMATE DECREASED; TARGET CELLS 1+
[2023-12-03 16:00] VITALS: BP 147/84; TEMP 98.5; O2SAT 99
[2023-12-03 20:00] VITALS: BP 140/86; TEMP 98.3; O2SAT 99
[2023-12-04] VITALS (8 sets, daily range): BP systolic 114–147; BP diastolic 79–87; TEMP 97.7–98.8; O2SAT 98–100
[2023-12-04 08:57] LABS: POTASSIUM 3.2 mmol/L (3.5-5.1)
[2023-12-04 08:58] LABS: CALCIUM, SERUM 7.8 mg/dL (8.5-10.1)
[2023-12-04 08:59] LABS: CREATININE 1.1 mg/dL (0.6-1.3)
[2023-12-04 10:00] LABS: BASOPHILS # (AUTO) 0.1 K/uL (0.0-0.2); BASOPHILS % (AUTO) 0.3 % (0.0-2.0); EOSINOPHILS # (AUTO) 0.1 K/uL (0.0-0.7); EOSINOPHILS % (AUTO) 0.3 % (0.0-6.0); HEMATOCRIT 26 % (39-51); HEMOGLOBIN 8.1 g/dL (13.5-17.5); LYMPHOCYTES # (AUTO) 0.8 K/uL (0.8-4.8); LYMPHOCYTES % (AUTO) 3.6 % (20.0-44.0); MEAN CORPUSCULAR HEMOGLOBIN 27 PG (26.0-33.0); MEAN CORPUSCULAR HGB CONC 32 g/dl (31.0-36.0); MEAN CORPUSCULAR VOLUME 85 fL (80-96); MONOCYTES # (AUTO) 0.4 K/uL (0.1-1.30); NEUTROPHILS # (AUTO) 20.1 K/uL (1.8-8.9); NEUTROPHILS % (AUTO) 93.8 % (43.0-81.0); PLATELET COUNT (AUTO) 103 K/uL (150-450); RED BLOOD CELL COUNT(AUTO) 3.01 MIL/uL (4.5-6.0); RED CELL DISTRIBUTION WIDTH 19.8 % (11.5-15.0); WHITE BLOOD COUNT (AUTO) 21.5 K/uL (4.3-11.0)
[2023-12-04 12:59] LABS: LYMPHOCYTES % (MANUAL) 3 % (16-48); MONOCYTES % (MANUAL) 3 % (0-11.0); NEUTROPHILS % (MANUAL) 94 (42-76)
[2023-12-04 13:05] LABS: ANISOCYTOSIS 1+; OVALOCYTES 1+; PLATELET ESTIMATE DECREASED
[2023-12-04 13:06] LABS: STOMATOCYTES 1+
[2023-12-04] MEDS: HYDROCORTISONE SOD SUCCINATE 100 MG/2 ML VIAL IV SCH (14:17)
[2023-12-04] MEDS: CELLULOSE,OXIDIZED 1 EACH EACH MC ONE (16:39)
[2023-12-04] MEDS: LIDOCAINE 1%-EPI 1:100,000 20 ML VIAL TP ONE (16:39)
[2023-12-04] MEDS: SILVER NITRATE APPLICATOR 1 EA BOX TP SCH (16:40)
[2023-12-05] VITALS (12 sets, daily range): BP systolic 108–159; BP diastolic 71–94; TEMP 94.2–97.8; O2SAT 98–100
[2023-12-05] MEDS: IV D5W 1,000 ML IV PRN (05:18)
[2023-12-05 07:43] LABS: BASOPHILS % (AUTO) 0.2 % (0.0-2.0); HEMATOCRIT 21 % (39-51); LYMPHOCYTES # (AUTO) 0.5 K/uL (0.8-4.8); LYMPHOCYTES % (AUTO) 3.4 % (20.0-44.0); MEAN CORPUSCULAR HEMOGLOBIN 27 PG (26.0-33.0); MEAN CORPUSCULAR HGB CONC 32 g/dl (31.0-36.0); MEAN CORPUSCULAR VOLUME 84 fL (80-96); MONOCYTES # (AUTO) 0.2 K/uL (0.1-1.30); MONOCYTES % (AUTO) 1.7 % (2.0-12.0); NEUTROPHILS # (AUTO) 13.4 K/uL (1.8-8.9); NEUTROPHILS % (AUTO) 94.7 % (43.0-81.0); PLATELET COUNT (AUTO) 76 K/uL (150-450); RED BLOOD CELL COUNT(AUTO) 2.54 MIL/uL (4.5-6.0); RED CELL DISTRIBUTION WIDTH 19.6 % (11.5-15.0); WHITE BLOOD COUNT (AUTO) 14.1 K/uL (4.3-11.0)
[2023-12-05 07:52] LABS: HEMOGLOBIN 6.7 g/dL (13.5-17.5)
[2023-12-05 08:21] LABS: IRON, SERUM 97 ug/dl (50-175); TOTAL IRON BINDING CAPACITY 96 ug/dl (250-450)
[2023-12-05 08:36] LABS: FERRITIN 3441 ng/mL (8-388)
[2023-12-05 11:20] LABS: CALCIUM, SERUM 8.5 mg/dL (8.5-10.1)
[2023-12-05 11:21] LABS: CREATININE 0.9 mg/dL (0.6-1.3); POTASSIUM 2.8 mmol/L (3.5-5.1)
[2023-12-05 11:45] LABS: EOSINOPHILS % (MANUAL) 0 % (0-4); LYMPHOCYTES % (MANUAL) 6 % (16-48); MONOCYTES % (MANUAL) 3 % (0-11.0); NEUTROPHILS % (MANUAL) 91 (42-76)
[2023-12-05 11:46] LABS: ANISOCYTOSIS 1+; BASOPHILS % (MANUAL) 0 % (0.0-2.0); HYPOCHROMASIA 2+; OVALOCYTES 1+; PLATELET ESTIMATE DECREASED
[2023-12-05] MEDS: POTASSIUM CHLORIDE 20 MEQ POWDER PACKET GT SCH (12:28)
[2023-12-05] MEDS: NEPRO 1,000 ML BOTTLE GT PRN (16:02)
[2023-12-05 17:54] LABS: HEMOGLOBIN 8.4 g/dL (13.5-17.5)
[2023-12-05 18:19] LABS: CALCIUM, SERUM 8.3 mg/dL (8.5-10.1); CREATININE 0.8 mg/dL (0.6-1.3); POTASSIUM 3.5 mmol/L (3.5-5.1)
[2023-12-05] MEDS: IV D5W 500 ML IV ONE (19:24)
[2023-12-06] VITALS: BP 124/76; TEMP 97.8; O2SAT 99
[2023-12-06 04:00] VITALS: BP 114/71; TEMP 98.5; O2SAT 95
[2023-12-06 06:54] LABS: CALCIUM, SERUM 8.5 mg/dL (8.5-10.1); CREATININE 0.8 mg/dL (0.6-1.3); POTASSIUM 3.1 mmol/L (3.5-5.1)
[2023-12-06 08:00] VITALS: BP 85/64; TEMP 97.9; O2SAT 95
[2023-12-06 12:00] VITALS: BP 104/75; TEMP 97.7; O2SAT 97
[2023-12-06 16:00] VITALS: BP 102/76; TEMP 97.3; O2SAT 98
[2023-12-06] MEDS: POTASSIUM CHLORIDE 20 MEQ POWDER PACKET GT ONE (16:44)
[2023-12-06 20:00] VITALS: BP 140/82; TEMP 97.6; O2SAT 100
[2023-12-07] VITALS: BP 131/91; TEMP 97.6; O2SAT 100
[2023-12-07 04:00] VITALS: BP 94/69; TEMP 97.5; O2SAT 99
[2023-12-07 07:58] LABS: CALCIUM, SERUM 8.3 mg/dL (8.5-10.1); CREATININE 0.8 mg/dL (0.6-1.3); MAGNESIUM 1.7 mg/dL (1.8-2.4); POTASSIUM 3.2 mmol/L (3.5-5.1)
[2023-12-07 08:00] VITALS: BP 94/64; TEMP 97.3; O2SAT 94
[2023-12-07] MEDS: Magnesium 1GM/D5W 100ML PREMIX 100 ML IV SCH (10:38)
[2023-12-07] MEDS: POTASSIUM CL. PREMIX PERIPHER. 50 ML IV SCH (10:38)
[2023-12-07 11:05] LABS: BASOPHILS % (AUTO) 0.2 % (0.0-2.0); EOSINOPHILS # (AUTO) 0.1 K/uL (0.0-0.7); EOSINOPHILS % (AUTO) 0.6 % (0.0-6.0); HEMATOCRIT 27 % (39-51); HEMOGLOBIN 8.3 g/dL (13.5-17.5); LYMPHOCYTES # (AUTO) 0.8 K/uL (0.8-4.8); LYMPHOCYTES % (AUTO) 3.9 % (20.0-44.0); MEAN CORPUSCULAR HEMOGLOBIN 27 PG (26.0-33.0); MEAN CORPUSCULAR HGB CONC 31 g/dl (31.0-36.0); MEAN CORPUSCULAR VOLUME 88 fL (80-96); MONOCYTES # (AUTO) 0.4 K/uL (0.1-1.30); MONOCYTES % (AUTO) 2.1 % (2.0-12.0); NEUTROPHILS # (AUTO) 19.5 K/uL (1.8-8.9); NEUTROPHILS % (AUTO) 93.2 % (43.0-81.0); PLATELET COUNT (AUTO) 71 K/uL (150-450); RED BLOOD CELL COUNT(AUTO) 3.06 MIL/uL (4.5-6.0); RED CELL DISTRIBUTION WIDTH 19.9 % (11.5-15.0)
[2023-12-07] MEDS: VANCOMYCIN HCL 125 MG/2.5 ML ORAL.SUSP GT SCH (11:52)
[2023-12-07 12:00] VITALS: BP 83/57; TEMP 97.2; O2SAT 96
[2023-12-07] MEDS: METRONIDAZOLE 500 MG TABLET GT SCH (12:11)
[2023-12-07] MEDS: METOCLOPRAMIDE HCL 10 MG TABLET GT SCH (12:11)
[2023-12-07 12:46] LABS: ANISOCYTOSIS 1+; BAND % (MANUAL) 2 % (0.0-5.0); BASOPHILS % (MANUAL) 0 % (0.0-2.0); EOSINOPHILS % (MANUAL) 0 % (0-4); HYPOCHROMASIA 1+; LYMPHOCYTES % (MANUAL) 6 % (16-48); MONOCYTES % (MANUAL) 3 % (0-11.0); NEUTROPHILS % (MANUAL) 89 (42-76); OVALOCYTES 1+; PLATELET ESTIMATE DECREASED
[2023-12-07] MEDS: MIDODRINE HCL (5MG) 5 MG TABLET PO SCH (13:23)
[2023-12-07] MEDS: NEUTRA PHOS 1 POWD.PACKET NG ONE (15:17)
[2023-12-07 16:00] VITALS: BP 123/84; TEMP 97.2; O2SAT 96
[2023-12-07 20:00] VITALS: BP 123/68; TEMP 97.4; O2SAT 98
[2023-12-07] MEDS: DOCUSATE SODIUM LIQ 100 MG/10 ML UDC GT SCH (21:11)
[2023-12-08] VITALS (7 sets, daily range): BP systolic 123–150; BP diastolic 75–96; TEMP 97.5–98; O2SAT 96–100
[2023-12-08 07:18] LABS: CALCIUM, SERUM 8.1 mg/dL (8.5-10.1); CREATININE 0.8 mg/dL (0.6-1.3); MAGNESIUM 1.7 mg/dL (1.8-2.4); PHOSPHORUS 2.2 mg/dL (2.5-4.9); POTASSIUM 3.3 mmol/L (3.5-5.1)
[2023-12-08 07:22] LABS: EOSINOPHILS % (AUTO) 0.2 % (0.0-6.0); HEMATOCRIT 24 % (39-51); HEMOGLOBIN 7.8 g/dL (13.5-17.5); LYMPHOCYTES # (AUTO) 0.9 K/uL (0.8-4.8); LYMPHOCYTES % (AUTO) 6.3 % (20.0-44.0); MEAN CORPUSCULAR HEMOGLOBIN 27 PG (26.0-33.0); MEAN CORPUSCULAR HGB CONC 32 g/dl (31.0-36.0); MEAN CORPUSCULAR VOLUME 84 fL (80-96); MONOCYTES # (AUTO) 0.3 K/uL (0.1-1.30); MONOCYTES % (AUTO) 2.5 % (2.0-12.0); NEUTROPHILS # (AUTO) 12.7 K/uL (1.8-8.9); PLATELET COUNT (AUTO) 56 K/uL (150-450); RED BLOOD CELL COUNT(AUTO) 2.87 MIL/uL (4.5-6.0); RED CELL DISTRIBUTION WIDTH 19.4 % (11.5-15.0); WHITE BLOOD COUNT (AUTO) 13.9 K/uL (4.3-11.0)
[2023-12-08] MEDS: HYDROCORTISONE SOD SUCCINATE 100 MG/2 ML VIAL IV SCH (08:21)
[2023-12-08] MEDS: POTASSIUM CHLORIDE 20 MEQ POWDER PACKET NG SCH (10:51)
[2023-12-08] MEDS: MAGNESIUM OXIDE 400 MG TABLET NG ONE (10:51)
[2023-12-08 11:55] LABS: ANISOCYTOSIS 1+; BAND % (MANUAL) 3 % (0.0-5.0); BASOPHILS % (MANUAL) 0 % (0.0-2.0); EOSINOPHILS % (MANUAL) 0 % (0-4); HYPOCHROMASIA 1+; LYMPHOCYTES % (MANUAL) 9 % (16-48); MONOCYTES % (MANUAL) 3 % (0-11.0); NEUTROPHILS % (MANUAL) 85 (42-76); OVALOCYTES FEW; PLATELET ESTIMATE DECREASED
[2023-12-08] MEDS: NEUTRA PHOS 1 POWD.PACKET NG ONE (16:50)
[2023-12-09] VITALS: BP 103/78; TEMP 97; O2SAT 96
[2023-12-09 04:00] VITALS: BP 112/67; TEMP 98.8; O2SAT 96
[2023-12-09 08:00] VITALS: BP 139/65; TEMP 97.5; O2SAT 90
[2023-12-09] MEDS ORDERED: Magnesium 1GM/D5W 100ML PREMIX PIGGYBACK IV ONE (11:30)
[2023-12-09 12:00] VITALS: BP 131/77; TEMP 99.9; O2SAT 97
[2023-12-09] MEDS: Magnesium 1GM/D5W 100ML PREMIX 100 ML IV SCH (12:14)
[2023-12-09 16:00] VITALS: BP 135/75; TEMP 99.5; O2SAT 98
[2023-12-09 20:00] VITALS: BP 127/89; TEMP 99.1; O2SAT 96
[2023-12-09] MEDS ORDERED: COLISTIMETHATE SODIUM 75 MG in IV NS 0.9% 50 ML IV SCH (20:30)
[2023-12-09] MEDS: COLISTIMETHATE SODIUM 75 MG in IV NS 0.9% 50 ML IV SCH (21:25)
[2023-12-10] VITALS (7 sets, daily range): BP systolic 95–121; BP diastolic 72–85; TEMP 97–98.5; O2SAT 93–100
[2023-12-10 07:28] LABS: BASOPHILS % (AUTO) 0.1 % (0.0-2.0); EOSINOPHILS % (AUTO) 0.1 % (0.0-6.0); HEMATOCRIT 26 % (39-51); LYMPHOCYTES # (AUTO) 0.8 K/uL (0.8-4.8); LYMPHOCYTES % (AUTO) 6.7 % (20.0-44.0); MEAN CORPUSCULAR HEMOGLOBIN 27 PG (26.0-33.0); MEAN CORPUSCULAR HGB CONC 31 g/dl (31.0-36.0); MEAN CORPUSCULAR VOLUME 86 fL (80-96); MONOCYTES # (AUTO) 0.3 K/uL (0.1-1.30); MONOCYTES % (AUTO) 2.8 % (2.0-12.0); NEUTROPHILS % (AUTO) 90.3 % (43.0-81.0); PLATELET COUNT (AUTO) 51 K/uL (150-450); RED BLOOD CELL COUNT(AUTO) 2.95 MIL/uL (4.5-6.0); RED CELL DISTRIBUTION WIDTH 20.5 % (11.5-15.0); WHITE BLOOD COUNT (AUTO) 12.2 K/uL (4.3-11.0)
[2023-12-10 07:42] LABS: CALCIUM, SERUM 8.9 mg/dL (8.5-10.1); CREATININE 0.8 mg/dL (0.6-1.3); MAGNESIUM 1.9 mg/dL (1.8-2.4); PHOSPHORUS 2.8 mg/dL (2.5-4.9); POTASSIUM 3.2 mmol/L (3.5-5.1)
[2023-12-10] MEDS: POTASSIUM CHLORIDE 20 MEQ POWDER PACKET GT ONE (10:36)
[2023-12-10 10:41] LABS: ABG OXYGEN SATURATION 90.8 % (92.0-98.5); ABG PCO2 42.4 mmHg (35.0-45.0); ABG PH 7.458 (7.350-7.450); ABG PO2 60.1 mmHg (75.0-100.0); ABG TOTAL HEMOGLOBIN 9.1 G/dL (13.5-18.0); AaDO2 176.3 mmHg; COHb 0.2 % (0.5-1.5); O2Hb 90.6 % (94.0-97.0); SITE, ABG Right Radial; VENT MODE, BG 18 475 +5 40%
[2023-12-10] MEDS: POTASSIUM CHLORIDE 20 MEQ POWDER PACKET NG SCH (11:03)
[2023-12-10 11:41] LABS: BAND % (MANUAL) 2 % (0.0-5.0); BASOPHILS % (MANUAL) 0 % (0.0-2.0); EOSINOPHILS % (MANUAL) 0 % (0-4); LYMPHOCYTES % (MANUAL) 8 % (16-48); MONOCYTES % (MANUAL) 3 % (0-11.0); NEUTROPHILS % (MANUAL) 87 (42-76)
[2023-12-10 11:42] LABS: ANISOCYTOSIS 1+; OVALOCYTES 1+; PLATELET ESTIMATE DECREASED
[2023-12-11] VITALS: BP 100/71; TEMP 97.8; O2SAT 93
[2023-12-11 04:00] VITALS: BP 121/88; TEMP 97.1; O2SAT 98
[2023-12-11 07:30] LABS: CREATININE 0.7 mg/dL (0.6-1.3); POTASSIUM 3.2 mmol/L (3.5-5.1)
[2023-12-11 07:38] LABS: BASOPHILS % (AUTO) 0.1 % (0.0-2.0); EOSINOPHILS % (AUTO) 0.2 % (0.0-6.0); HEMATOCRIT 24 % (39-51); HEMOGLOBIN 7.6 g/dL (13.5-17.5); LYMPHOCYTES # (AUTO) 0.8 K/uL (0.8-4.8); LYMPHOCYTES % (AUTO) 8.8 % (20.0-44.0); MEAN CORPUSCULAR HEMOGLOBIN 27 PG (26.0-33.0); MEAN CORPUSCULAR HGB CONC 32 g/dl (31.0-36.0); MEAN CORPUSCULAR VOLUME 85 fL (80-96); MONOCYTES # (AUTO) 0.4 K/uL (0.1-1.30); MONOCYTES % (AUTO) 3.7 % (2.0-12.0); NEUTROPHILS # (AUTO) 8.3 K/uL (1.8-8.9); NEUTROPHILS % (AUTO) 87.2 % (43.0-81.0); RED CELL DISTRIBUTION WIDTH 19.7 % (11.5-15.0); WHITE BLOOD COUNT (AUTO) 9.5 K/uL (4.3-11.0)
[2023-12-11 07:45] LABS: PLATELET COUNT (AUTO) 41 K/uL (150-450)
[2023-12-11 08:00] VITALS: BP 111/77; TEMP 98.3; O2SAT 97
[2023-12-11] MEDS: POTASSIUM CHLORIDE 20 MEQ POWDER PACKET NG SCH (11:06)
[2023-12-11 11:48] LABS: ANISOCYTOSIS 1+; BAND % (MANUAL) 2 % (0.0-5.0); BASOPHILS % (MANUAL) 0 % (0.0-2.0); EOSINOPHILS % (MANUAL) 0 % (0-4); HYPOCHROMASIA 1+; LYMPHOCYTES % (MANUAL) 10 % (16-48); MONOCYTES % (MANUAL) 4 % (0-11.0); NEUTROPHILS % (MANUAL) 84 (42-76); PLATELET ESTIMATE DECREASED
[2023-12-11 12:00] VITALS: BP 146/94; TEMP 98.8; O2SAT 99
[2023-12-11] MEDS: SILVER NITRATE APPLICATOR 1 EA BOX TP ONE (13:59)
[2023-12-11] MEDS: CELLULOSE,OXIDIZED 1 EACH EACH MC ONE (13:59)
[2023-12-11] MEDS: LIDOCAINE 1%-EPI 1:100,000 20 ML VIAL TP ONE (13:59)
[2023-12-11 16:00] VITALS: BP 88/63; TEMP 98.8; O2SAT 99
[2023-12-11 20:00] VITALS: BP 128/86; TEMP 97.7; O2SAT 99
[2023-12-12] VITALS (8 sets, daily range): BP systolic 92–124; BP diastolic 70–82; TEMP 97.3–98.1; O2SAT 96–99
[2023-12-12 07:29] LABS: CALCIUM, SERUM 8.4 mg/dL (8.5-10.1); CREATININE 0.8 mg/dL (0.6-1.3); POTASSIUM 3.3 mmol/L (3.5-5.1)
[2023-12-12] MEDS: POTASSIUM CHLORIDE 20 MEQ POWDER PACKET PO ONE (11:27)
[2023-12-12 23:49] LABS: BASOPHILS % (AUTO) 0.3 % (0.0-2.0); EOSINOPHILS % (AUTO) 0.2 % (0.0-6.0); HEMATOCRIT 22 % (39-51); HEMOGLOBIN 7.1 g/dL (13.5-17.5); LYMPHOCYTES # (AUTO) 0.6 K/uL (0.8-4.8); LYMPHOCYTES % (AUTO) 13.3 % (20.0-44.0); MEAN CORPUSCULAR HEMOGLOBIN 28 PG (26.0-33.0); MEAN CORPUSCULAR HGB CONC 33 g/dl (31.0-36.0); MEAN CORPUSCULAR VOLUME 85 fL (80-96); MONOCYTES # (AUTO) 0.2 K/uL (0.1-1.30); MONOCYTES % (AUTO) 4.2 % (2.0-12.0); RED BLOOD CELL COUNT(AUTO) 2.53 MIL/uL (4.5-6.0); RED CELL DISTRIBUTION WIDTH 19.3 % (11.5-15.0); WHITE BLOOD COUNT (AUTO) 4.9 K/uL (4.3-11.0)
[2023-12-13] VITALS (11 sets, daily range): BP systolic 64–108; BP diastolic 55–71; TEMP 97.1–98.1; O2SAT 95–100
[2023-12-13] LABS: PLATELET COUNT (AUTO) 42 K/uL (150-450)
[2023-12-13 01:25] LABS: ANISOCYTOSIS 1+; BASOPHILS % (MANUAL) 0 % (0.0-2.0); EOSINOPHILS % (MANUAL) 0 % (0-4); LYMPHOCYTES % (MANUAL) 11 % (16-48); MONOCYTES % (MANUAL) 5 % (0-11.0); NEUTROPHILS % (MANUAL) 84 (42-76); PLATELET ESTIMATE DECREASED
[2023-12-13 07:23] LABS: BASOPHILS % (AUTO) 0.4 % (0.0-2.0); EOSINOPHILS % (AUTO) 0.1 % (0.0-6.0); HEMATOCRIT 24 % (39-51); HEMOGLOBIN 7.6 g/dL (13.5-17.5); LYMPHOCYTES # (AUTO) 0.6 K/uL (0.8-4.8); MEAN CORPUSCULAR HEMOGLOBIN 27 PG (26.0-33.0); MEAN CORPUSCULAR HGB CONC 31 g/dl (31.0-36.0); MEAN CORPUSCULAR VOLUME 88 fL (80-96); MONOCYTES # (AUTO) 0.2 K/uL (0.1-1.30); NEUTROPHILS # (AUTO) 3.9 K/uL (1.8-8.9); NEUTROPHILS % (AUTO) 81.5 % (43.0-81.0); RED BLOOD CELL COUNT(AUTO) 2.77 MIL/uL (4.5-6.0); RED CELL DISTRIBUTION WIDTH 19.9 % (11.5-15.0); WHITE BLOOD COUNT (AUTO) 4.8 K/uL (4.3-11.0)
[2023-12-13 07:33] LABS: CALCIUM, SERUM 9.5 mg/dL (8.5-10.1); CREATININE 0.8 mg/dL (0.6-1.3); POTASSIUM 3.3 mmol/L (3.5-5.1)
[2023-12-13 07:38] LABS: PLATELET COUNT (AUTO) 35 K/uL (150-450)
[2023-12-13] MEDS: POTASSIUM CHLORIDE 20 MEQ POWDER PACKET GT ONE (09:27)
[2023-12-13 09:38] LABS: ANISOCYTOSIS 1+; BASOPHILS % (MANUAL) 0 % (0.0-2.0); EOSINOPHILS % (MANUAL) 0 % (0-4); HYPOCHROMASIA 1+; LYMPHOCYTES % (MANUAL) 11 % (16-48); MONOCYTES % (MANUAL) 5 % (0-11.0); NEUTROPHILS % (MANUAL) 84 (42-76); OVALOCYTES 1+; PLATELET ESTIMATE DECREASED
[2023-12-13 12:00] LABS: ABG BASE EXCESS 5.7 mmol/L; ABG OXYGEN SATURATION 93.9 % (92.0-98.5); ABG PCO2 48.7 mmHg (35.0-45.0); ABG PO2 73.3 mmHg (75.0-100.0); ABG TOTAL HEMOGLOBIN 8.3 G/dL (13.5-18.0); AaDO2 155.9 mmHg; COHb 0.1 % (0.5-1.5); MetHb 0.2 % (0.0-1.5); O2Hb 93.6 % (94.0-97.0); PEEP,BG 5 cm H2O; SITE, ABG Right Radial; VT, ABG 475 mL
[2023-12-13 12:00] LABS: ABG BASE EXCESS 6.7 mmol/L; ABG OXYGEN SATURATION 97.2 % (92.0-98.5); ABG PCO2 50.7 mmHg (35.0-45.0); ABG PH 7.418 (7.350-7.450); ABG PO2 105.4 mmHg (75.0-100.0); ABG TOTAL HEMOGLOBIN 8.3 G/dL (13.5-18.0); AaDO2 157.8 mmHg; COHb 0.3 % (0.5-1.5); MetHb 0.5 % (0.0-1.5); O2Hb 96.4 % (94.0-97.0); PEEP,BG 5 cm H2O; SITE, ABG Right Radial; VT, ABG 475 mL
[2023-12-13] MEDS: COLISTIMETHATE SODIUM 75 MG in IV NS 0.9% 50 ML IV SCH (18:39)
[2023-12-14] VITALS (78 sets, daily range): BP systolic 53–155; BP diastolic 43–96; TEMP 97.4–98; O2SAT 90–100
[2023-12-14] MEDS: DEXTROSE 50%-WATER 50 ML DISP.SYRIN IV PRN ×2 (05:41→11:58)
[2023-12-14] MEDS: IV NS 0.9% 1,000 ML BAG IV PRN (06:09)
[2023-12-14] MEDS ORDERED: NOREPINEPHRINE 8 MG in IV D5W 242 ML IV PRN (07:00)
[2023-12-14 07:08] LABS: CALCIUM, SERUM 9.2 mg/dL (8.5-10.1); POTASSIUM 3.3 mmol/L (3.5-5.1)
[2023-12-14] MEDS: NOREPINEPHRINE 8 MG in IV D5W 242 ML IV PRN (07:22)
[2023-12-14 07:28] LABS: BASOPHILS % (AUTO) 0.1 % (0.0-2.0); EOSINOPHILS % (AUTO) 0.3 % (0.0-6.0); LYMPHOCYTES # (AUTO) 0.7 K/uL (0.8-4.8); LYMPHOCYTES % (AUTO) 15.8 % (20.0-44.0); MEAN CORPUSCULAR HEMOGLOBIN 27 PG (26.0-33.0); MEAN CORPUSCULAR HGB CONC 31 g/dl (31.0-36.0); MEAN CORPUSCULAR VOLUME 85 fL (80-96); MONOCYTES # (AUTO) 0.2 K/uL (0.1-1.30); MONOCYTES % (AUTO) 5.5 % (2.0-12.0); NEUTROPHILS # (AUTO) 3.4 K/uL (1.8-8.9); NEUTROPHILS % (AUTO) 78.3 % (43.0-81.0); RED BLOOD CELL COUNT(AUTO) 2.39 MIL/uL (4.5-6.0); RED CELL DISTRIBUTION WIDTH 19.5 % (11.5-15.0); WHITE BLOOD COUNT (AUTO) 4.4 K/uL (4.3-11.0)
[2023-12-14 07:53] LABS: HEMATOCRIT 20 % (39-51); HEMOGLOBIN 6.4 g/dL (13.5-17.5); PLATELET COUNT (AUTO) 42 K/uL (150-450)
[2023-12-14] MEDS ORDERED: CEFEPIME 1 GM in IV D5W 50 ML IV SCH (08:30)
[2023-12-14] MEDS: POTASSIUM CHLORIDE 20 MEQ POWDER PACKET GT ONE (08:38)
[2023-12-14 09:39] LABS: BAND % (MANUAL) 4 % (0.0-5.0); LYMPHOCYTES % (MANUAL) 15 % (16-48); MONOCYTES % (MANUAL) 5 % (0-11.0); NEUTROPHILS % (MANUAL) 76 (42-76)
[2023-12-14 09:40] LABS: ANISOCYTOSIS 1+; HYPOCHROMASIA 1+; PLATELET ESTIMATE DECREASED
[2023-12-14] MEDS: BLOOD SUGAR DIAGNOSTIC 1 EACH STRIP IN SCH (11:54)
[2023-12-14] MEDS: IV D5/ 0.9% NACL 1,000 ML IV PRN (12:47)
[2023-12-14] MEDS: CEFEPIME 2 GM in IV D5W 100 ML IV SCH (13:19)
[2023-12-14 19:59] LABS: HEMOGLOBIN 8.6 g/dL (13.5-17.5)
[2023-12-15] VITALS (88 sets, daily range): BP systolic 65–173; BP diastolic 46–103; TEMP 92–97.5; O2SAT 92–100
[2023-12-15 04:17] LABS: BASOPHILS % (AUTO) 0.4 % (0.0-2.0); EOSINOPHILS % (AUTO) 0.4 % (0.0-6.0); HEMATOCRIT 25 % (39-51); LYMPHOCYTES # (AUTO) 1.1 K/uL (0.8-4.8); LYMPHOCYTES % (AUTO) 25.8 % (20.0-44.0); MEAN CORPUSCULAR HEMOGLOBIN 28 PG (26.0-33.0); MEAN CORPUSCULAR HGB CONC 32 g/dl (31.0-36.0); MEAN CORPUSCULAR VOLUME 85 fL (80-96); MONOCYTES # (AUTO) 0.4 K/uL (0.1-1.30); MONOCYTES % (AUTO) 8.7 % (2.0-12.0); NEUTROPHILS # (AUTO) 2.7 K/uL (1.8-8.9); NEUTROPHILS % (AUTO) 64.7 % (43.0-81.0); RED BLOOD CELL COUNT(AUTO) 2.91 MIL/uL (4.5-6.0); RED CELL DISTRIBUTION WIDTH 18.9 % (11.5-15.0); WHITE BLOOD COUNT (AUTO) 4.2 K/uL (4.3-11.0)
[2023-12-15 04:41] LABS: PLATELET COUNT (AUTO) 37 K/uL (150-450)
[2023-12-15 04:45] LABS: CALCIUM, SERUM 10.1 mg/dL (8.5-10.1); CREATININE 0.9 mg/dL (0.6-1.3); POTASSIUM 3.7 mmol/L (3.5-5.1)
[2023-12-15] MEDS: IV D5/0.45 NACL 1,000 ML IV PRN (09:00)
[2023-12-15 10:23] LABS: ANISOCYTOSIS 1+; BAND % (MANUAL) 2 % (0.0-5.0); EOSINOPHILS % (MANUAL) 0 % (0-4); HYPOCHROMASIA 1+; LYMPHOCYTES % (MANUAL) 20 % (16-48); MONOCYTES % (MANUAL) 7 % (0-11.0); NEUTROPHILS % (MANUAL) 71 (42-76); PLATELET ESTIMATE DECREASED
[2023-12-15 17:49] LABS: ABG BASE EXCESS -0.3 mmol/L; ABG OXYGEN SATURATION 97.4 % (92.0-98.5); ABG PCO2 48.4 mmHg (35.0-45.0); ABG PH 7.342 (7.350-7.450); ABG PO2 109.9 mmHg (75.0-100.0); ABG TOTAL HEMOGLOBIN 8.7 G/dL (13.5-18.0); AaDO2 155.9 mmHg; COHb 0.3 % (0.5-1.5); MetHb 0.2 % (0.0-1.5); O2Hb 96.9 % (94.0-97.0); SITE, ABG Right Femoral
[2023-12-15] MEDS: CHLORHEXIDINE GLUCONATE 15 ML UDC MM SCH (21:31)
[2023-12-15] MEDS: MIDODRINE HCL (5MG) 5 MG TABLET PO SCH (21:32)
[2023-12-15] MEDS: METOCLOPRAMIDE HCL 10 MG TABLET GT SCH (21:33)
[2023-12-16] VITALS (68 sets, daily range): BP systolic 60–165; BP diastolic 37–104; TEMP 96.2–96.9; O2SAT 55–100
[2023-12-16] MEDS: DILTIAZEM HCL 25 MG IV IV ONE (00:16)
[2023-12-16] MEDS: METOPROLOL TARTRATE INJ 5 MG/5 ML AMPUL IVP PRN (00:20)
[2023-12-16 01:28] LABS: CALCIUM, SERUM 9.2 mg/dL (8.5-10.1); CREATININE 1.2 mg/dL (0.6-1.3); MAGNESIUM 1.2 mg/dL (1.8-2.4); POTASSIUM 3.4 mmol/L (3.5-5.1)
[2023-12-16] MEDS: NOREPINEPHRINE 8 MG in IV D5W 242 ML IV PRN (01:58)
[2023-12-16] MEDS: Magnesium 1GM/D5W 100ML PREMIX 100 ML IV SCH ×2 (02:48→03:46)
[2023-12-16 03:54] LABS: BASOPHILS % (AUTO) 0.3 % (0.0-2.0); EOSINOPHILS % (AUTO) 0.5 % (0.0-6.0); HEMATOCRIT 29 % (39-51); HEMOGLOBIN 9.3 g/dL (13.5-17.5); LYMPHOCYTES # (AUTO) 0.8 K/uL (0.8-4.8); LYMPHOCYTES % (AUTO) 25.9 % (20.0-44.0); MEAN CORPUSCULAR HEMOGLOBIN 27 PG (26.0-33.0); MEAN CORPUSCULAR HGB CONC 32 g/dl (31.0-36.0); MEAN CORPUSCULAR VOLUME 86 fL (80-96); MONOCYTES # (AUTO) 0.1 K/uL (0.1-1.30); MONOCYTES % (AUTO) 4.8 % (2.0-12.0); NEUTROPHILS # (AUTO) 2.1 K/uL (1.8-8.9); NEUTROPHILS % (AUTO) 68.5 % (43.0-81.0); RED CELL DISTRIBUTION WIDTH 18.8 % (11.5-15.0); WHITE BLOOD COUNT (AUTO) 3.1 K/uL (4.3-11.0)
[2023-12-16 04:03] LABS: CALCIUM, SERUM 10.3 mg/dL (8.5-10.1); CREATININE 1.1 mg/dL (0.6-1.3); POTASSIUM 3.5 mmol/L (3.5-5.1)
[2023-12-16 04:08] LABS: PLATELET COUNT (AUTO) 26 K/uL (150-450)
[2023-12-16] MEDS: INSULIN REGULAR, HUMAN 100 UNIT/ML 3 ML VIAL SQ PRN (06:06)
[2023-12-16 08:06] LABS: ANISOCYTOSIS 1+; BASOPHILS % (MANUAL) 0 % (0.0-2.0); EOSINOPHILS % (MANUAL) 0 % (0-4); HYPOCHROMASIA 1+; LYMPHOCYTES % (MANUAL) 22 % (16-48); MONOCYTES % (MANUAL) 7 % (0-11.0); NEUTROPHILS % (MANUAL) 71 (42-76); PLATELET ESTIMATE DECREASED; TARGET CELLS 1+
[2023-12-16 08:30] LABS: ABG BASE EXCESS -0.9 mmol/L; ABG OXYGEN SATURATION 86.6 % (92.0-98.5); ABG PCO2 75.9 mmHg (35.0-45.0); ABG PH 7.192 (7.350-7.450); ABG PO2 59.1 mmHg (75.0-100.0); ABG TOTAL HEMOGLOBIN 10.7 G/dL (13.5-18.0); COHb 0.3 % (0.5-1.5); MetHb 0.2 % (0.0-1.5); O2Hb 86.2 % (94.0-97.0); SITE, ABG Right Radial
[2023-12-16] MEDS: POTASSIUM CL. PREMIX PERIPHER. 50 ML IV SCH (08:57)
[2023-12-16] MEDS: NOREPINEPHRINE 32 MG in IV NS 0.9% 218 ML IV PRN (09:00)
[2023-12-16 09:07] LABS: MAGNESIUM 2.3 mg/dL (1.8-2.4)
[2023-12-16] MEDS: COLISTIMETHATE SODIUM 75 MG in IV NS 0.9% 50 ML IV SCH (09:45)
[2023-12-16] MEDS: PHENYLEPHRINE 100 MG in IV NS 0.9% 240 ML IV PRN (15:53)
[2023-12-16] MEDS ORDERED: EPINEPHRINE (1:10,000) SYRINGE 1 MG/10 ML DISP.SYRIN IVP ONE (19:25)
== END 2023-12-16 21:46 | DRG 710 ==
LOC: ER 19:53 → ICU 20:51 → TELE 11-26 12:14 → ICU 11-30 09:01 → TELE1 12-02 14:28 → ICU 12-14 06:58
PROVIDERS: ADMIT Nurse Practitioner Acute Care; ATTEND Nurse Practitioner Family
PROC: 5A1955Z Respiratory Ventilation, Greater than 96 Consecutive Hours (ICD-10-PCS; principal; 2023-11-22)
PROC: 0BH17EZ Insertion of Endotracheal Airway into Trachea, Via Natural or Artificial Opening (ICD-10-PCS; 2023-11-22)
PROC: 30233R1 Transfusion of Nonautologous Platelets into Peripheral Vein, Percutaneous Approach (ICD-10-PCS; 2023-11-22)
PROC: 05HC33Z Insertion of Infusion Device into Left Basilic Vein, Percutaneous Approach (ICD-10-PCS; 2023-11-23)
PROC: 30233N1 Transfusion of Nonautologous Red Blood Cells into Peripheral Vein, Percutaneous Approach (ICD-10-PCS; 2023-11-24)
PROC: 0KBN0ZZ Excision of Right Hip Muscle, Open Approach (ICD-10-PCS; 2023-11-27)
PROC: 0KBP0ZZ Excision of Left Hip Muscle, Open Approach (ICD-10-PCS; 2023-11-27)
PROC: 02HV33Z Insertion of Infusion Device into Superior Vena Cava, Percutaneous Approach (ICD-10-PCS; 2023-11-30)
PROC: B548ZZA Ultrasonography of Superior Vena Cava, Guidance (ICD-10-PCS; 2023-11-30)
PROC: 0QB10ZZ Excision of Sacrum, Open Approach (ICD-10-PCS; 2023-12-04)
PROC: 0QB10ZZ Excision of Sacrum, Open Approach (ICD-10-PCS; 2023-12-11)
PROC: 05HC33Z Insertion of Infusion Device into Left Basilic Vein, Percutaneous Approach (ICD-10-PCS; 2023-12-15)
PROC: 5A2204Z Restoration of Cardiac Rhythm, Single (ICD-10-PCS; 2023-12-16)
DX: A41.51 Sepsis due to Escherichia coli [E. coli] (principal); J96.21 Acute and chronic respiratory failure with hypoxia; N17.0 Acute kidney failure with tubular necrosis; R65.21 Severe sepsis with septic shock; J69.0 Pneumonitis due to inhalation of food and vomit; G82.50 Quadriplegia, unspecified; A04.72 Enterocolitis due to Clostridium difficile, not specified as recurrent; G92.8 Other toxic encephalopathy; E43 Unspecified severe protein-calorie malnutrition; G93.1 Anoxic brain damage, not elsewhere classified; J15.69 Pneumonia due to other Gram-negative bacteria; Z93.0 Tracheostomy status; Z99.11 Dependence on respirator [ventilator] status; L89.154 Pressure ulcer of sacral region, stage 4; D62 Acute posthemorrhagic anemia; V89.2XXS Person injured in unspecified motor-vehicle accident, traffic, sequela; Z93.1 Gastrostomy status; E11.22 Type 2 diabetes mellitus with diabetic chronic kidney disease; Z87.820 Personal history of traumatic brain injury; E78.5 Hyperlipidemia, unspecified; E83.42 Hypomagnesemia; K21.9 Gastro-esophageal reflux disease without esophagitis; Z86.718 Personal history of other venous thrombosis and embolism; Z79.51 Long term (current) use of inhaled steroids; Z79.4 Long term (current) use of insulin; Z79.01 Long term (current) use of anticoagulants; Z79.899 Other long term (current) drug therapy; Z16.24 Resistance to multiple antibiotics; Z78.9 Other specified health status; Y95 Nosocomial condition; Z16.13 Resistance to carbapenem; R13.10 Dysphagia, unspecified; N40.0 Benign prostatic hyperplasia without lower urinary tract symptoms; R18.8 Other ascites; N30.91 Cystitis, unspecified with hematuria; L89.620 Pressure ulcer of left heel, unstageable; K80.20 Calculus of gallbladder without cholecystitis without obstruction; N18.9 Chronic kidney disease, unspecified; I13.10 Hypertensive heart and chronic kidney disease without heart failure, with stage 1 through stage 4 chronic kidney disease, or unspecified chronic kidney disease; E86.0 Dehydration; B96.83 Acinetobacter baumannii as the cause of diseases classified elsewhere; E86.1 Hypovolemia; E87.1 Hypo-osmolality and hyponatremia; E87.0 Hyperosmolality and hypernatremia; G40.909 Epilepsy, unspecified, not intractable, without status epilepticus; E88.09 Other disorders of plasma-protein metabolism, not elsewhere classified; E87.6 Hypokalemia; E87.20 Acidosis, unspecified; D69.6 Thrombocytopenia, unspecified; I25.2 Old myocardial infarction; I48.91 Unspecified atrial fibrillation; J98.11 Atelectasis; K56.7 Ileus, unspecified; J90 Pleural effusion, not elsewhere classified
CPT/HCPCS: 31720; 36410; 36415; 36569; 36600; 71045-TC; 72192-TC; 74018; 76770-TC; 80048-TC; 80053-TC; 80076-TC; 80202-TC; 81001; 82040-TC; 82272-TC; 82533; 82607-TC; 82728-TC; 82803-TC; 82962-TC; 83540-TC; 83605-TC; 83735-TC; 84100-TC; 84439-TC; 84443-TC; 84484-TC; 85025-TC; 85027-TC; 85730-TC; 86850-TC; 87040-TC; 87070-TC; 87081-TC; 87086-TC; 87186-TC; 92950-TC; 93307-TC; 94002-TC; 94003-TC; 94760-TC; 94762-TC; 94799-TC; 99082-TC; A4217; A4223; A4623; A6253; A6403; A7526; C9113; G0378; J0171; J0360; J0692; J0770; J1720; J1815; J2185; J3370; J3371; J3475; J3480; J3490; J7030; J7040; J7042; J7050; J7060; J7070; J7120; J8597; P9016; P9034; P9047